=== PATIENT | female | born 1950 | race Caucasian/White ===

== ENCOUNTER → 2016-08-09 | Outpatient (CLI) | payer OTHER ==
[~2016-08-09] MED LIST: ASPI81TA21 PO; ASPITAB71 PO; ATOR-24 PO; CETI10TA10 PO; CLC100 PO; HYDR500C3 PO; LOSA25TA18 PO; MRLP17X PO; NITR0.4S UT; OMEP20CA9 PO; ONDA4TAB46 PO; TPRSR25 PO; TRIA0.1C55 TOP; WARF-246 PO
--- NOTE | 2016-08-09 15:06 | DIAGNOSTIC IMAGING REPORT ---
ULTRASOUND LEFT LOWER EXTREMITY VENOUS CLINICAL HISTORY: Left leg pain. COMPARISON STUDY: Bilateral lower extremity venous ultrasound dated 07/14/2013. TECHNIQUE: Real-time, grayscale, and color Doppler sonography of the deep veins of the left lower extremity was performed from the inguinal crease to the calf. Compression and augmentation were utilized. FINDINGS: There is no sonographic evidence of deep venous thrombosis identified in the left lower extremity. The common femoral, superficial femoral, and popliteal veins are patent and normally compressible. The greater saphenous vein and the profunda femoris vein at the junction with the common femoral vein are clear. The visualized calf veins are patent. IMPRESSION: There is no sonographic evidence of deep venous thrombosis identified in the left lower extremity. Electronically signed by: Sumit Ochoa M.D. 08/09/2016 3:05 PM Dictated Date/Time: 08/09/2016 3:04 PM
== END | disposition home or self-care (01) ==
LOC: C.ULTR 14:20
PROVIDERS: ATTEND Nurse Practitioner
DX: M79.662 Pain in left lower leg (principal); M79.89 Other specified soft tissue disorders

== ENCOUNTER 2018-10-01 09:07 | Inpatient (IN) ==
--- NOTE | 2018-08-13 08:57 | PAT Medication Instructions ---
Medication Instructions Date of Service August 13, 2018 Home Medications aspirin [Aspir-81] 81 mg PO DAILY atorvastatin 40 mg PO QAM calcium carbonate-simethicone [Emily-[place] Heartburn+Gas] 1 tab PO NEEDED cyanocobalamin (vitamin B-12) 1,000 mcg PO DAILY fluticasone propionate 2 spray INTRANASAL BID folic acid 1 mg PO DAILY glycerin (adult) [Suppository] 1 supp [place] DAILY NEEDED hydroxyurea 2 tab PO WK hydroxyurea 500 mg PO 6XWK ipratropium bromide 2 spray INTRANASAL BID losartan 25 mg PO DAILY nasal dilators [Breathe Right] nitroglycerin 1 tab SUBLINGUAL NEEDED omega 3-xrh-jrt-fish oil [Fish Oil] 1 cap PO DAILY omeprazole 20 mg PO BID ondansetron HCl 4 mg PO NEEDED polyethylene glycol 3350 [Miralax] 17 g PO DAILY NEEDED ranitidine HCl 300 mg PO QDD triamcinolone acetonide 1 applic TOPICAL NEEDED warfarin [Jantoven] 2.5 mg PO 2XWK warfarin [Jantoven] 5 mg PO 5XWK Continue as directed nitroglycerin 1 tab SUBLINGUAL NEEDED ASK your prescriber and surgeon warfarin [Jantoven] 2.5 mg PO 2XWK warfarin [Jantoven] 5 mg PO 5XWK aspirin [Aspir-81] 81 mg PO DAILY STOP taking 2 weeks before surgery omega 2-diw-omr-fish oil [Fish Oil] 1 cap PO DAILY STOP taking 24 hours before surgery triamcinolone acetonide 1 applic TOPICAL NEEDED DO NOT take the morning of surgery atorvastatin 40 mg PO QAM calcium carbonate-simethicone [[place] Heartburn+Gas] 1 tab PO NEEDED cyanocobalamin (vitamin B-12) 1,000 mcg PO DAILY fluticasone propionate 2 spray INTRANASAL BID folic acid 1 mg PO DAILY glycerin (adult) [Suppository] 1 supp [place] DAILY NEEDED hydroxyurea 2 tab PO WK hydroxyurea 500 mg PO 6XWK ipratropium bromide 2 spray INTRANASAL BID losartan 25 mg PO DAILY ondansetron HCl 4 mg PO NEEDED polyethylene glycol 3350 [Miralax] 17 g PO DAILY NEEDED Take morning of surgery With a small sip of water, OTHERWISE NOTHING TO EAT OR DRINK AFTER MIDNIGHT: omeprazole 20 mg PO BID Take evening before surgery fluticasone propionate 2 spray INTRANASAL BID ipratropium bromide 2 spray INTRANASAL BID nasal dilators [Breathe Right] omeprazole 20 mg PO BID ondansetron HCl 4 mg PO NEEDED polyethylene glycol 3350 [Miralax] 17 g PO DAILY NEEDED ranitidine HCl 300 mg PO QDD Other Notes If you have any questions please call us at [phone] or [phone] or [phone] or [phone]
--- NOTE | 2018-08-14 12:59 | Anesthesiology Consultation ---
Date of Service August 14, 2018 Assessment & Plan Chart Review Chart Review: Pending: Refer to Additional Notes / Consult section and Patient NOT seen in Pre Admission Testing Pt came to the ED on 08/13/18 with c/o SOB, dyspnea and atypical CP. Pt needs to be evaluated by PCP to ensure that she is optimized prior to her planned surgery Consults Requested medical History Surgery Operation Date: 08/29/18 10:35 Proposed Procedures p L2-S1 Decompression and Fusion, Possible Interbody - Kory Eller DO Height/Weight Height: 1.68 m Weight: 95.708 kg Allergies Allergy/AdvReac Type Severity Reaction Status Date / Time Penicillins Allergy Unknown PT NOT Verified 08/13/18 11:06 SURE, TOLD SINCE CHILDHOOD HAD REACTION TO PCN scallops Allergy Unknown throat Verified 08/13/18 11:06 swelling Sulfa (Sulfonamide Allergy Unknown PT NOT Verified 08/13/18 11:06 Antibiotics) SURE, ? BREATHING ISSUE tramadol AdvReac Severe SEVERE Verified 08/13/18 11:06 NAUSEA Medications Home Medications Medication Instructions Recorded Confirmed Last Taken aspirin [Aspir-81] 81 mg PO DAILY 08/08/18 08/13/18 08/07/18 atorvastatin 40 mg PO QAM 08/08/18 08/13/18 08/13/18 calcium carbonate-simethicone 1 tab PO UD PRN 08/08/18 08/13/18 Unknown [Emily-[place] Heartburn+Gas] cyanocobalamin (vitamin B-12) 1,000 mcg PO DAILY 08/08/18 08/13/18 Unknown [Vitamin B-12] fluticasone propionate 2 spray INTRANASAL BID 08/08/18 08/13/18 Unknown folic acid 1 mg PO DAILY 08/08/18 08/13/18 Unknown glycerin (adult) [Suppository 1 supp [place] DAILY PRN 08/08/18 08/13/18 Unknown Adult] hydroxyurea 2 tab PO WK 08/08/18 08/13/18 Unknown hydroxyurea 500 mg PO 6XWK 08/08/18 08/13/18 Unknown ipratropium bromide 2 spray INTRANASAL BID 08/08/18 08/13/18 Unknown losartan 25 mg PO DAILY 08/08/18 08/13/18 Unknown nasal dilators [Breathe Right] 08/08/18 08/13/18 Unknown nitroglycerin 1 tab SUBLINGUAL UD PRN 08/08/18 08/13/18 Unknown omega 7-lbk-lyt-fish oil [Fish Oil] 1 cap PO DAILY 08/08/18 08/13/18 Unknown omeprazole 20 mg PO BID 08/08/18 08/13/18 08/08/18 ondansetron HCl 4 mg PO UD PRN 08/08/18 08/13/18 Unknown polyethylene glycol 3350 [Miralax] 17 g PO DAILY PRN 08/08/18 08/13/18 Unknown ranitidine HCl 300 mg PO QDD 08/08/18 08/13/18 08/07/18 triamcinolone acetonide 1 applic TOPICAL UD PRN 08/08/18 08/13/18 Unknown warfarin [Jantoven] 2.5 mg PO 2XWK 08/08/18 08/13/18 Unknown warfarin [Jantoven] 5 mg PO 5XWK 08/08/18 08/13/18 08/07/18 Past Medical History Medical History Acid reflux Back problem Blood disorder "ESSENTIAL" (PT NOT SURE REMAINDER OF NAME)- PT REPORTS PLATELETS ARE TOO HIGH Chronic constipation Hiatal hernia History of fainting YRS AGO History of fall History of pulmonary embolism 2013 Hyperlipidemia Hypertension Learning disability 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 Osteoarthritis Poor short term memory Rheumatoid arthritis Sinus congestion ENT FOR/TROUBLE BREATHING THROUGH NOSE Sleep apnea 02 HS Stress incontinence Thyroid nodule Past Family History Family History Other Family history of stroke Past Surgical History Surgical History History of cardiac cath YRS AGO, [place], PT CAN'T REMEMBER REASON...DENIES STENTS History of colonoscopy History of endoscopy History of shoulder surgery R & L - SEPERATE PROCEDURES FOR History of tubal ligation History of PONV No Social History Smoking Status: Never smoker Do You Dip or Chew Tobacco: No Hx Alcohol Use: No Hx Substance Use: No substance use type: does not use Exercise / Class Metabolic Activity III < 4 Walking/Shop/Light housework Testing Electrocardiogram Date: 08/13/18 Findings: + NSR @ (64 bpm) Chest X-Ray Date: 08/13/18 Findings: + NAD FINDINGS: Cardiac silhouette mildly enlarged. Lungs and pleural spaces clear. Osseous structures normal. Upper abdomen normal. IMPRESSION: 1. Mild cardiomegaly. No other convincing evidence of acute cardiopulmonary disease. Laboratory Results Laboratory Tests 08/13/18 08/13/18 08/13/18 10:34 10:34 10:34 WBC 6.48 Hgb 13.2 Hct 39.6 Plt Count 368 PT 19.5 H INR 2.0 H Sodium 140 Potassium 3.8 Chloride 107 Carbon Dioxide 26 BUN 11 Creatinine 0.82 Glucose 110 H TSH 1.120
[~2018-10-01 09:07] MED LIST changes: +ACETAMINOPHEN 500 MG TAB PO SCH; -ASPI81TA21 PO; -ASPITAB71 PO; -ATOR-24 PO; -CETI10TA10 PO; -CLC100 PO; +CLINDAMYCIN 600 MG/54 ML BAG IV SCH; +GABAPENTIN 300 MG PO SCH; -HYDR500C3 PO; +HYDROmorphone INJ 2 MG/ML SYR/VIAL ONE; -LOSA25TA18 PO; +LR 15ML/HR IV SCH; +MIDAZOLAM HCL 1 MG/ML 2ML VIAL ONE; -MRLP17X PO; -NITR0.4S UT; -OMEP20CA9 PO; -ONDA4TAB46 PO; +PROPOFOL IV EMULSION 10 MG/ML 100 ML VIAL IV ONE; -TPRSR25 PO; -TRIA0.1C55 TOP; -WARF-246 PO; +fentaNYL citrate 100 MCG/2 ML VIAL ONE
--- OUTSIDE RECORDS SUMMARY | 2018-10-01 09:16 | External Medical Summary | Continuity of Care Document ---
:1950 Author Name Allrozina M.D. 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 ___ (724.02) Shoulder joint pain (719.41) (M25.519) Multiple thyroid nodules (241.1) (E04.2) Obstructive sleep apnea (327.23) (G47.33) Long-term (current) use of anticoagulants (V58.61) (Z79.01) Essential tremor (333.1) (G25.0) Memory disturbance (780.93) (R41.3) Hyperlipidemia (272.4) (E78.5) Hypertension (401.9) (I10) Esophageal reflux (530.81) (K21.9) Osteoarthritis (715.90) (M19.90) Peripheral neuropathy (356.9) (G62.9) Hiatal hernia (553.3) (K44.9) Varicose veins (454.9) (I83.90) Postmenopausal status (V49.81) (Z78.0) Allergies and Adverse Reactions Lisinopril TABS (Allergy) Penicillins (Allergy) Sulfa Drugs (Allergy) Medications Aspirin 81 MG TABS , M.D. Refills: 0 Warfarin Sodium 1 MG Oral Tablet; TAKE DIRECTED. , M.D. Refills: 0 Flonase 50 MCG/ACT SUSP; USE 2 SPRAYS IN EACH NOSTRIL ONCE D Uday URBANO. Quantity: 1 Refills: 1 Omeprazole 20 MG Oral Capsule Delayed Release; 1 bid , M.D. Refills: 0 Emily-[place] Extra Strength 500 MG Oral Tablet Effervescent; chew 1 at bedtime for acid reflux , M.D. Refills: 0 Nitrostat 0.4 MG Sublingual Tablet Subli ngual; PLACE 1 TABLET UNDER THE TONGUE EVERY 5 MINUTES FOR UP TO 3 DOSES NEEDED FOR CHEST PAIN.CALL 911 IF PAIN PERSISTS. , M.D. Refills: 0 Toprol XL 25 MG Oral Tablet Extended Release 24 Hour; TAKE 1/2 TABLET DAILY. , M.D. Refills: 0 Atorvastatin Calcium 40 MG Oral Tablet; 1 daily , M.D. Refills: 0 MiraLax Oral Powder; 1 heaping TB in 8 oz fluid prn constipa tion. , M.D. Refills: 0 Docusate Sodium 100 MG Oral Capsule; 1 tablet bid , M.D. Refills: 0 Hydroxyurea; TAKE 1 CAPSULE DAILY. , M.D. Refills: 0 Losartan Potassium 25 MG Oral Tablet; TAKE 1 TABLET DAILY. , M.D. Refills: 0 Zofran 4 MG Oral Tablet; 1 tablet every 8 hours prn nausea , M.D. Refills: 0 Cetirizine HCl - 10 MG Oral Tablet; TAKE 1 TABLET DAILY N EEDED. , M.D. Refills: 0 Triamcinolone Acetonide 0.1 % External Cream; apply BID to a ffected area , M.D. Refills: 0 Procedures History of Shoulder Surgery Status: Comp leted History of Neuroplasty Decompression Median Nerve At Carpal Status: Completed Tunnel History of Dilation And Curettage Status : Completed History of Laparoscopy With Fulguration Of Oviducts Status: Completed History of Complete Colonoscopy Status: Completed History of Diagnostic Esophagogastroduodenoscopy Status: Completed Immunizations Immunizations not documented Family History Father Family history of hypertension (V17.49) (Z82.49) Status: Act serge Family history of Pernicious anemia (281.0) (D51.0) Status: Active Mother Family history of acute myocardial infarction (V17.3) (Z82.4 9) Status: Active Social History - Smoking Status Never smoker Plan of Treatment Planned Observations Planned Goals not documented Results No Known Results Results not documented
[2018-10-01] MEDS ORDERED: ATROPINE SULFATE 0.1 MG/ML 10ML SYR IV PRN (09:56)
[2018-10-01] MEDS ORDERED: ePHEDrine sulfate 50 MG/ML AMP IV PRN (09:56)
[2018-10-01] MEDS ORDERED: fentaNYL citrate 100 MCG/2 ML VIAL IV PRN (09:56)
[2018-10-01] MEDS ORDERED: PHENYLEPHRINE 100MCG/ML 5ML SYR IV PRN (09:56)
[2018-10-01] MEDS ORDERED: PROMETHAZINE HCL 12.5 MG in SODIUM CHLORIDE 0.9% 50 ML IV PRN ×2 (09:56→15:51)
[2018-10-01] MEDS ORDERED: ONDANSETRON INJ 2 MG/ML 2 ML VIAL IV PRN (09:56)
[2018-10-01] MEDS ORDERED: HYDROmorphone INJ 1 MG/ML SYRINGE IV PRN (09:56)
[2018-10-01 10:14] LABS: INR 1.1 (0.9-1.1); Prothrombin Time 11.4 Seconds (9.0-12.0)
--- NOTE | 2018-10-01 10:19 | History & Physical Bridge Note ---
Date of Service October 01, 2018 History & Physical Bridge Note I have examined the patient, reviewed the History & Physical and in the interval since the performance of the History & Physical I have noted the following changes of clinical significance: no changes noted
--- NOTE | 2018-10-01 10:20 | History & Physical Report ---
Date of Service October 01, 2018 Assessment & Plan (1) Spinal stenosis, lumbar region with neurogenic claudication: Decompression and fusion L2-S1 possible interbody Present on Admission?: Yes History of Present Illness Chief Complaint: Back and leg pain Primary Care Provider: Heather Higgins MD Presents with chronic persistent back and leg pain. After failing extensive course of nonoperative care she is here for surgical intervention. Allergies Allergy/AdvReac Type Severity Reaction Status Date / Time Penicillins Allergy Unknown PT NOT Verified 10/01/18 09:39 SURE, TOLD SINCE CHILDHOOD HAD REACTION TO PCN scallops Allergy Unknown throat Verified 10/01/18 09:39 swelling Sulfa (Sulfonamide Allergy Unknown PT NOT Verified 10/01/18 09:39 Antibiotics) SURE, ? BREATHING ISSUE tramadol AdvReac Severe SEVERE Verified 10/01/18 09:39 NAUSEA Home Medications Home Medications Medication Instructions Recorded Confirmed Type aspirin [Aspir-81] 81 mg PO DAILY 08/08/18 10/01/18 History atorvastatin 40 mg PO QAM 08/08/18 10/01/18 History calcium carbonate-simethicone 1 tab PO UD PRN 08/08/18 10/01/18 History [Emily-[place] Heartburn+Gas] cyanocobalamin (vitamin B-12) 1,000 mcg PO DAILY 08/08/18 10/01/18 History [Vitamin B-12] fluticasone propionate 2 spray INTRANASAL BID 08/08/18 10/01/18 History folic acid 1 mg PO DAILY 08/08/18 10/01/18 History glycerin (adult) [Suppository 1 supp [place] DAILY PRN 08/08/18 10/01/18 History Adult] hydroxyurea 2 tab PO WK 08/08/18 10/01/18 History hydroxyurea 500 mg PO 6XWK 08/08/18 10/01/18 History ipratropium bromide 2 spray INTRANASAL BID 08/08/18 08/13/18 History losartan 25 mg PO DAILY 08/08/18 10/01/18 History nasal dilators [Breathe Right] 08/08/18 08/13/18 History nitroglycerin 1 tab SUBLINGUAL UD PRN 08/08/18 10/01/18 History omega 4-jlo-gyl-fish oil [Fish Oil] 1 cap PO DAILY 08/08/18 10/01/18 History omeprazole 20 mg PO BID 08/08/18 10/01/18 History ondansetron HCl 4 mg PO UD PRN 08/08/18 10/01/18 History polyethylene glycol 3350 [Miralax] 17 g PO DAILY PRN 08/08/18 10/01/18 History ranitidine HCl 300 mg PO QDD 08/08/18 10/01/18 History triamcinolone acetonide 1 applic TOPICAL UD PRN 08/08/18 10/01/18 History warfarin [Jantoven] 2.5 mg PO 2XWK 08/08/18 10/01/18 History warfarin [Jantoven] 5 mg PO 5XWK 08/08/18 10/01/18 History Past Med/Surg History Family History Other Family history of stroke Social History Preferred Language: Uzbek Communication Ability: Effective Communication Ability Comment: LEARNING DISABILITY/CAN'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 Feather Washer Required: No Beliefs That Will Affect Care: Spiritism Spiritism Beliefs: SHINTO Current Living Situation: Significant Other Other Information That Helps Us Care for You: No Feels Safe at Home: Yes Smoking Status: Never smoker Do You Dip or Chew Tobacco: No Hx Alcohol Use: No Hx Substance Use: No Physical Exam Vital Signs (Past 24 Hours): Last Vital Signs Temp 36.6 C 10/01/18 09:38 Pulse 66 10/01/18 09:38 Resp 18 10/01/18 09:38 BP 162/90 H 10/01/18 09:38 Pulse Ox 99 10/01/18 09:38 Physical Exam: Patient is alert and oriented neurologically intact.
[2018-10-01] MEDS ORDERED: ALBUMIN HUMAN 5% 12.5 GM/250 ML VIAL IV ONE ×2 (10:28→12:49)
[2018-10-01] MEDS ORDERED: HYDROmorphone INJ 2 MG/ML SYR/VIAL ONE ×2 (10:28→13:34)
[2018-10-01] MEDS ORDERED: BUPIVACAINE/EPINEPHRINE 0.5% MPF 1:200,000 30 ML VIAL ONE ×2 (10:38→11:20)
[2018-10-01] MEDS ORDERED: BACITRACIN INJ 50,000 UNIT VIAL ONE (10:39)
[2018-10-01] MEDS ORDERED: fentaNYL citrate 100 MCG/2 ML VIAL ONE ×3 (11:21→12:57)
[2018-10-01] MEDS ORDERED: PHENYLEPHRINE 100MCG/ML 5ML SYR ONE ×2 (11:51→13:43)
[2018-10-01] MEDS ORDERED: ePHEDrine sulfate 50 MG/ML SYR ONE ×2 (11:53→13:43)
[2018-10-01 13:28] LABS: Hematocrit (blood only) 26.4 % (37-47); Hemoglobin 9.2 g/dL (12.0-16.0)
[2018-10-01] MEDS ORDERED: FLOSEAL HEMOSTATIC MATRIX 10ML TOP ONE (13:34)
[2018-10-01] MEDS ORDERED: CALCIUM CHLORIDE 10% 10 ML SYR IV ONE ×2 (13:35→13:43)
--- NOTE | 2018-10-01 13:39 | Operative Report ---
Post Operative Report Pre & Post Diagnosis Operation Date: 08/29/18 10:05 <No data on this case meets the specified criteria> Operation Date: 10/01/18 10:55 Pre-Op Diagnosis: Lumbar spinal stenosis with neurogenic claudication Obesity Post-Op Diagnosis: Same Procedure Operation Date: 08/29/18 10:05 <No data on this case meets the specified criteria> Operation Date: 10/01/18 10:55 Actual Procedures #1 lumbar decompression with bilateral medial facetectomies and foraminotomies L2-3 L3-4 L4-5 L5-S1. #2 posterior spinal fusion L2-3 L3-4 L4-5 L5-S1. #3 placement of posterior segmental instrumentation using globus rods and screws L2-3 L3-4 L4-5 L5-S1. #4 placement of local autograft in the posterior lateral gutters. #6 5 placement infuse collagen sponge, mass graft in the posterior lateral gutters. Surgeon Kory Eller, DO Supervisor Housecleaner Maureen Cherry Estimated Blood Loss 1,300 Findings See Below Patient is 5 foot 6 inches tall and weighs 91 kg with a BMI of 32. This combined with a blood loss in excess of 1300 cc created significant technical difficulty. I did have to use her largest retractors and longus Kerrisons to perform the procedure. This added at least 30 to 40% increase in operative time. Specimens None Indications This is a 68-year-old female who presents with chronic persistent back and bilateral leg pain. After failing extensive course of nonoperative care like to undergo the above-mentioned procedure. Description of Procedure Patient was met with identified and informed consent obtained. Patient was then taken to the operative suite and after undergoing intubation placed in the prone position the Bruno table on top of the Moncho frame. All bony prominences well-padded inspected to ensure no external pressure placed upon. This point the lumbar spine was prepped and draped in a normal sterile fashion. Sharp dissection with the assistance of Bovie cautery was performed down to and exposing the lamina and transverse processes of L2 L3-L4-L5 and sacral ala bilaterally. From a caudal cephalad fashion complete laminectomy of L5 L4 L3 and L2 was performed including bilateral medial facetectomies and foraminotomies addressing severe stenosis. A small durotomy was noted along the lateral recess to 3 4 on the left. Was unable to close this directly and placed a small piece of DuraGen overlying this region. This created a good seal and no appreciable leakage. Pedicle screws were then placed in L2 L3-L4-L5 and S1 levels bilaterally with assistance of fluoroscopy and appropriate size gregg placed. A cross-link was locked in position. The transverse processes of L2 L3-L4-L5 and sacral ala were burred to subcortical being bone. Infuse collagen sponge and mass graft was then placed in the posterior lateral gutters. 15 round VIGNESH drain inserted. The incision was then closed with 1 Vicryl in the fascia 2-0 Vicryl subtenons seen for Monocryl for final skin closure. Steri-Strip sterile dressings placed. Patient will continue to PACU stable condition. Please note Maureen Cherry present throughout the entire procedure involved in patient positioning complex portions of the surgery and final skin closure. Lastly spinal cord monitoring was utilized and no changes were noted. I attest to the content of the Intraoperative Record and any orders documented therein. Any exceptions are noted below.
[2018-10-01] MEDS ORDERED: LIDOCAINE HCL 2% 2 ML VIAL/AMP(20MG/ML) INFIL ONE (13:43)
[2018-10-01] MEDS ORDERED: KETOROLAC 30 MG/ML VIAL ONE (13:43)
[2018-10-01] MEDS ORDERED: GLYCOPYRROLATE 0.2 MG/ML VIAL ONE (13:43)
[2018-10-01] MEDS ORDERED: DEXAMETHASONE SOD INJ 4 MG/ML VIAL ONE (13:43)
[2018-10-01] MEDS ORDERED: PROPOFOL IV EMULSION 10 MG/ML 20 ML VIAL IV ONE (13:43)
[2018-10-01] MEDS ORDERED: ROCURONIUM BROMIDE 10 MG/ML 5 ML VIAL ONE (13:43)
[2018-10-01] MEDS ORDERED: ONDANSETRON INJ 2 MG/ML 2 ML VIAL ONE ×2 (13:43→15:30)
[2018-10-01] MEDS ORDERED: NEOSTIGMINE METHYLSULFATE 1 MG/ML 10ML VIAL ONE (13:43)
--- NOTE | 2018-10-01 13:58 | Fluoroscopy Report ---
FL lumbar spine 2-3V HISTORY: 68 years-old Female L2-S1 DECOMPRESSION AND FUSION POSSIBLE INTERBODY COMPARISON: CTA of the abdomen and pelvis 08/13/2018 TECHNIQUE: 2 spot fluoroscopic images of the lumbar spine were obtained utilizing 40 seconds fluorosc opy time FINDINGS: Posterior interbody gregg and screw fusion hardware is noted extending from the L2-S1 levels. Multileve l spondylitic spurring with intervertebral disc space narrowing. Alignment appears satisfactory. IMPRESSION: Fluoroscopic assistance as above. Please see operative report for further details. The above report was generated using voice recognition software. It may contain grammatical, syntax o r spelling errors. Electronically signed by: Howie Solorio M.D. 10/01/2018 1:56 PM
[2018-10-01] MEDS ORDERED: SOD PHOSPHATE/SOD BIPHOSPHATE ENEMA 132 ML BTL PR PRN (15:51)
[2018-10-01] MEDS ORDERED: FAMOTIDINE 20 MG TAB PO PRN (15:51)
[2018-10-01] MEDS ORDERED: DO NOT ADMINISTER PNEUMOCOCCAL VACCINE PRN (15:51)
[2018-10-01] MEDS ORDERED: GLYCERIN PR PRN (15:51)
[2018-10-01] MEDS ORDERED: DO NOT ADMINISTER FLU VACCINE PRN (15:51)
[2018-10-01] MEDS ORDERED: TRIAMCINOLONE ACET 0.1% CR 15 GM TUBE TOP PRN (15:51)
[2018-10-01] MEDS ORDERED: ALUMINUM/MAGNESIUM SUSP 30 ML UDC PO PRN (15:51)
[2018-10-01] MEDS ORDERED: POLYETHYLENE (MIRALAX) 17 GM PACK PO PRN (15:51)
[2018-10-01] MEDS ORDERED: LORazepam 0.5 MG/1 ML VIAL IV PRN (15:51)
[2018-10-01] MEDS ORDERED: BISACODYL 10 MG SUPP PR PRN (15:51)
[2018-10-01] MEDS ORDERED: [UNRECOGNIZED DRUG - OTHER] PO PRN (15:51)
[2018-10-01] MEDS ORDERED: MAGNESIUM HYDROXIDE SUSP 30 ML UDC PO PRN (15:51)
[2018-10-01] MEDS ORDERED: METOCLOPRAMIDE HCL INJ 5 MG/ML 2 ML VIAL IV PRN (15:51)
[2018-10-01] MEDS ORDERED: NITROGLYCERIN SL 0.4 MG/TAB TAB SL PRN (15:51)
[2018-10-01] MEDS ORDERED: WARFARIN SOD 5 MG TAB PO SCH (15:51)
[2018-10-01] MEDS ORDERED: ONDANSETRON 4 MG TAB PO PRN ×2 (15:51)
[2018-10-01] MEDS ORDERED: CALCIUM CARBONATE SIMETHICONE PO PRN (15:51)
--- NOTE | 2018-10-01 16:20 | Anesthesiology Progress Note ---
Date of Service October 01, 2018 Anesthesia Post Procedure Vital Signs Vital Signs: Temp Pulse Pulse Resp BP Pulse Ox 10/01/18 16:10 36.3 C L 47 L 16 154/90 H 100 10/01/18 15:40 36.3 C L 51 L 15 158/87 H 97 10/01/18 15:20 49 L 16 148/70 H 100 10/01/18 15:05 49 L 15 140/76 100 10/01/18 14:55 48 L 14 178/73 H 98 10/01/18 14:45 36.2 C L 53 L 17 151/76 H 99 10/01/18 14:35 55 L 15 164/85 H 99 10/01/18 14:25 60 17 156/86 H 100 10/01/18 14:15 60 14 166/79 H 99 10/01/18 14:07 36.4 C L 57 L 16 171/87 H 100 10/01/18 09:38 36.6 C 66 18 162/90 H 99 Pain Intensity Lower Back: Pain Intensity: 6 Transfer of Care Handoff Completed per policy Notes Mental Status: alert / awake / arousable Patient Amnestic to Procedure: Yes Nausea / Vomiting: adequately controlled Pain: adequately controlled Airway Patency, RR, SpO2: stable & adequate BP & HR: stable & adequate Hydration State: stable & adequate Anesthetic Complications: no major complications apparent Notes: Doing well, no complaints. VSS
[2018-10-01] MEDS ORDERED: HYDROXYUREA 500 MG CAP PO SCH (17:00)
--- NOTE | 2018-10-01 17:27 | Consultation ---
Date of Consultation October 01, 2018 Assessment & Plan (1) H/O lumbosacral spine surgery: This is a 68-year-old female with a PMH of HTN, HLD, history of recurrent PE on Coumadin, chronic chest pain, essential thrombocytopenia and lumbosacral stenosis who is POD#0 s/p lumbar decompression and fusion L2-S1 by Dr. Eller. -POD#0 s/p lumbar decompression and fusion L2-S1 by Dr. Eller -Per ortho for pain control, wound care and activities -Small dural tear noted in operative note. Bedrest in flat position until surgeon evaluates tomorrow -Receiving fluids at 150cc/hr. Will cap after 2L to reassess volume status -Continue incentive spirometry, PT/OT when appropriate (2) Acute blood loss anemia: EBL of 1300 during surgery -Pre-op hgb from August 2018 with hgb of 13. Post-op hgb of 9.2 -Received 1u prbcs intraoperatively. 1 unit held -Serial H & H overnight (3) Nausea: Postoperative -Continue Zofran PRN, added Phenergan NH PRN (4) Hypertension: Slightly elevated post-operatively in setting of pain -Continue losartan (5) Hyperlipidemia: Continue statin (6) History of pulmonary embolism: History of recurrent PE on coumadin, last PE in 2013 -Was bridged with Lovenox preoperatively. Last dose of Coumadin was on 09/25 and bridged SQ Lovenox from 09/28 - 09/30 at 8 AM -Holding Lovenox and coumadin in post-operative setting with dural tear, per discussion with Dr. Eller (7) Essential thrombocytosis: Continue hydroxyurea (8) Sleep apnea: Continue home 2L nasal cannula oxygen (9) Acid reflux: Continue PPI DVT Ppx: SCDs PCP: Ronaldo Dispo: Per primary service Patient seen in collaboration with Dr. Johnson. Please see addendum. History of Present Illness Reason for Consultation: This is a 68-year-old female with a PMH of HTN, HLD, history of recurrent PE on Coumadin, chronic chest pain, essential thrombocytopenia and lumbosacral stenosis who is POD#0 s/p lumbar decompression and fusion L2-S1 by Dr. Eller. Patient is feeling nauseated postoperatively but denies any vomiting. Is endorsing surgical site pain that is 7/10 and worse with movement. No numbness or paresthesias of lower extremities. Patient with history of recurrent PEs (last known PE in 2013) and emergency medical services coordinator recommended bridging therapy with Lovenox perioperatively. Last dose of Coumadin was on 09/25 and bridged SQ Lovenox from 09/28 - 09/30 at 8 AM. Is on 2 L nasal cannula oxygen continuously at home for sleep apnea. Denies any fever, chills, lightheadedness, headache, chest pain, palpitations, shortness of breath, abdominal pain, dysuria, diarrhea or constipation. Attending Physician: Kory Eller DO Allergies Allergy/AdvReac Type Severity Reaction Status Date / Time Penicillins Allergy Unknown PT NOT Verified 10/01/18 09:39 SURE, TOLD SINCE CHILDHOOD HAD REACTION TO PCN scallops Allergy Unknown throat Verified 10/01/18 09:39 swelling Sulfa (Sulfonamide Allergy Unknown PT NOT Verified 10/01/18 09:39 Antibiotics) SURE, ? BREATHING ISSUE tramadol AdvReac Severe SEVERE Verified 10/01/18 09:39 NAUSEA Home Medications Home Medications Medication Instructions Recorded Confirmed Type aspirin [Aspir-81] 81 mg PO DAILY 08/08/18 10/01/18 History atorvastatin 40 mg PO QAM 08/08/18 10/01/18 History calcium carbonate-simethicone 1 tab PO UD PRN 08/08/18 10/01/18 History [Emily-Baudette Heartburn+Gas] cyanocobalamin (vitamin B-12) 1,000 mcg PO DAILY 08/08/18 10/01/18 History [Vitamin B-12] fluticasone propionate 2 spray INTRANASAL BID 08/08/18 10/01/18 History folic acid 1 mg PO DAILY 08/08/18 10/01/18 History glycerin (adult) [Suppository 1 supp NH DAILY PRN 08/08/18 10/01/18 History Adult] hydroxyurea 2 tab PO WE@0900 08/08/18 10/01/18 History hydroxyurea 500 mg PO SUMOTUTHFRSA@0900 08/08/18 10/01/18 History ipratropium bromide 2 spray INTRANASAL BID 08/08/18 08/13/18 History losartan 25 mg PO DAILY 08/08/18 10/01/18 History nasal dilators [Breathe Right] 08/08/18 08/13/18 History nitroglycerin 1 tab SUBLINGUAL UD PRN 08/08/18 10/01/18 History omega 4-whe-zly-fish oil [Fish Oil] 1 cap PO DAILY 08/08/18 10/01/18 History omeprazole 20 mg PO BID 08/08/18 10/01/18 History ondansetron HCl 4 mg PO UD PRN 08/08/18 10/01/18 History polyethylene glycol 3350 [Miralax] 17 g PO DAILY PRN 08/08/18 10/01/18 History ranitidine HCl 300 mg PO QDD 08/08/18 10/01/18 History triamcinolone acetonide 1 applic TOPICAL UD PRN 08/08/18 10/01/18 History warfarin [Jantoven] 2.5 mg PO TUTHSA@1600 08/08/18 10/01/18 History warfarin [Jantoven] 5 mg PO SUMOWEFR@1600 08/08/18 10/01/18 History enoxaparin 100 mg SUBCUT Q12H 10/01/18 10/01/18 History Patient History Medical History Hypertension (Chronic) Hyperlipidemia (Chronic) History of pulmonary embolism (Chronic) Last in 2013, on coumadin Sleep apnea (Chronic) 02 HS Acid reflux (Chronic) Osteoarthritis (Chronic) Essential thrombocytosis (Chronic) Hiatal hernia (Chronic) Learning disability (Chronic) 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 Poor short term memory (Chronic) Stress incontinence (Chronic) Surgical History History of cardiac cath (Chronic) YRS AGO, [place], PT CAN'T REMEMBER REASON...DENIES STENTS History of shoulder surgery (Chronic) R & L - SEPERATE PROCEDURES FOR History of tubal ligation (Chronic) Family History Other Family history of stroke Heart disease Social History Preferred Language: Kyr[place]z Communication Ability: Effective Communication Ability Comment: LEARNING DISABILITY/CAN'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 Servicing Manager Required: No Beliefs That Will Affect Care: Scientology Scientology Beliefs: ORIENTAL ORTHODOX Current Living Situation: Significant Other Other Information That Helps Us Care for You: No Feels Safe at Home: Yes Smoking Status: Never smoker Do You Dip or Chew Tobacco: No Hx Alcohol Use: No Hx Substance Use: No Review of Systems Review of Systems: At least ten systems reviewed and negative except as noted in the HPI. Physical Exam Physical Exam: General Appearance: WD/WN, in some distress due to nausea, sleeping intermittently but cooperative, saturating 99% on 2L NC Head: normocephalic, atraumatic Eyes: normal inspection, PERRL, EOMI ENT: hearing grossly normal, pharynx normal (moist mucous membranes) Neck: supple, no JVD, no adenopathy Respiratory/Chest: lungs clear to auscultation. No wheezes, rales or rhonci. No respiratory distress or accessory muscle use Cardiovascular: regular rate, rhythm, no murmur, normal peripheral pulses Abdomen/GI: normal bowel sounds, soft, non-tender to palpation Extremities/Musculoskelatal: normal inspection, no calf tenderness, normal capillary refill, no pedal edema Back: Did not examine surgical dressing due to patient's nausea. VIGNESH drain visualized. Neurologic/Psych: alert, normal mood/affect, oriented x 3 Skin: pale, warm/dry Results & Data Vital Signs (Past 12 Hours) Vital Signs Temp Pulse Pulse Resp BP Pulse Ox 10/01/18 16:36 55 L 16 158/83 H 100 10/01/18 16:10 36.3 C L 47 L 16 154/90 H 100 10/01/18 15:40 36.3 C L 51 L 15 158/87 H 97 10/01/18 15:20 49 L 16 148/70 H 100 10/01/18 15:05 49 L 15 140/76 100 10/01/18 14:55 48 L 14 178/73 H 98 10/01/18 14:45 36.2 C L 53 L 17 151/76 H 99 10/01/18 14:35 55 L 15 164/85 H 99 10/01/18 14:25 60 17 156/86 H 100 10/01/18 14:15 60 14 166/79 H 99 10/01/18 14:07 36.4 C L 57 L 16 171/87 H 100 10/01/18 09:38 36.6 C 66 18 162/90 H 99 Laboratory Results Short CBC 10/01/18 Range/Units 13:09 Hgb 9.2 L (12.0-16.0) g/dL Hct 26.4 L (37-47) % Pertinent pre-op labs (08/13/18): Hgb 13 Cr 0.82 GFR 72.5
[2018-10-01] MEDS ORDERED: PROMETHAZINE HCL 25 MG SUPP PR STA (17:31)
[2018-10-01] MEDS: LACTATED RINGER'S 1,000 ML IV SCH (18:06)
[2018-10-01] MEDS: CLINDAMYCIN 600 MG in DEXTROSE 5% 50 ML IV SCH (19:41)
[2018-10-01 20:15] LABS: Hematocrit (blood only) 30.4 % (37-47); Hemoglobin 10.1 g/dL (12.0-16.0)
[2018-10-01] MEDS ORDERED: FAMOTIDINE 20 MG in SYRINGE 3 ML IV SCH (20:30)
[2018-10-01] MEDS ORDERED: FAMOTIDINE 20 MG in SYRINGE 3 ML IV PRN (20:45)
[2018-10-01] MEDS: PANTOprazole 40 MG TAB PO SCH (21:33)
[2018-10-01] MEDS: DOCUSATE SODIUM/SENNA 50/8.6MG TAB PO SCH (21:33)
[2018-10-01] MEDS: IPRATROPIUM BROMIDE NASAL SPRAY 0.06% 15ML SCH (21:34)
[2018-10-01] MEDS: ACETAMINOPHEN 500 MG TAB PO PRN (23:37)
[2018-10-02] MEDS: LACTATED RINGER'S 1,000 ML IV SCH ×3 (00:35→23:50)
[2018-10-02 02:14] LABS: Hematocrit (blood only) 26.9 % (37-47); Hemoglobin 9.1 g/dL (12.0-16.0); Mean Corpuscular Hgb Conc 33.8 g/dL (32-36); Mean Corpuscular Volume 103.1 fL (80-100); Mean Platelet Volume 9.3 fL (7.4-10.4); Platelet Count 219 K/uL (130-400); RDW Coefficient of Variation 14.7 % (11.5-14.5); RDW Standard Deviation 55.3 fL (36.4-46.3); Red Blood Count 2.61 M/uL (4.2-5.4); White Blood Count 7.82 K/uL (4.8-10.8)
[2018-10-02 02:35] LABS: Immature Granulocytes # (auto) 0.01 K/uL (0.00-0.02); Immature Granulocytes % (auto) 0.1 %; Lymphocytes # (auto) 0.51 K/uL (1.2-3.4); Lymphocytes % (auto) 6.5 %; Monocytes # (auto) 0.51 K/uL (0.11-0.59); Monocytes % (auto) 6.5 %; Neutrophils # (auto) 6.79 K/uL (1.4-6.5); Neutrophils % (auto) 86.9 %
[2018-10-02 02:39] LABS: BUN Creatinine Ratio 11.3 (10-20); Calcium 8.5 mg/dl (8.5-10.1); Creatinine Clr Calc Pharmacy 100.8 ml/min; Est GFR (African American) 106.5; Est GFR (Non-African American) 91.9; Potassium 3.9 mmol/L (3.5-5.1)
[2018-10-02] MEDS: CLINDAMYCIN 600 MG in DEXTROSE 5% 50 ML IV SCH (03:47)
[2018-10-02] MEDS: IPRATROPIUM BROMIDE NASAL SPRAY 0.06% 15ML SCH ×2 (03:48→21:34)
[2018-10-02] MEDS: POLYETHYLENE (MIRALAX) 17 GM PACK PO SCH ×3 (05:43→19:52)
[2018-10-02] MEDS: ONDANSETRON INJ 2 MG/ML 2 ML VIAL IV PRN (07:22)
[2018-10-02] MEDS: CYANOCOBALAMIN 500 MCG TABLET (VITAMIN B-12) PO SCH (08:44)
[2018-10-02] MEDS: ATORVASTATIN 40 MG TAB PO SCH (08:44)
[2018-10-02] MEDS: LOSARTAN POTASSIUM 25 MG TAB PO SCH (08:44)
[2018-10-02] MEDS: HYDROXYUREA 500 MG CAP PO SCH (08:44)
[2018-10-02] MEDS: ASPIRIN 81 MG ECTAB PO SCH (08:44)
[2018-10-02] MEDS: FOLIC ACID 1 MG TAB PO SCH (08:44)
[2018-10-02] MEDS: PANTOprazole 40 MG TAB PO SCH ×2 (08:44→21:34)
[2018-10-02] MEDS: HYDROmorphone INJ 0.5 MG/0.5 ML SYR IV PRN ×3 (09:13→23:58)
--- NOTE | 2018-10-02 10:52 | Hospitalist Progress Note ---
Date of Service October 02, 2018 Assessment & Plan (1) H/O lumbosacral spine surgery: This is a 68-year-old female with a PMH of HTN, HLD, history of recurrent PE on Coumadin, chronic chest pain, essential thrombocytopenia and lumbosacral stenosis who is POD#1 s/p lumbar decompression and fusion L2-S1 by Dr. Eller. -POD#1 s/p lumbar decompression and fusion L2-S1 by Dr. Eller -Per ortho for pain control, wound care and activities -Small dural tear noted in operative note. Bedrest in flat position until surgeon evaluates today -Receiving fluids at 150 ml/hr for 2 L. Decreased fluid rate to 80 ml/hr to decrease likelyhood of volume overload -Continue incentive spirometry, PT/OT when appropriate (2) Acute blood loss anemia: EBL of 1300 ml during surgery. VIGNESH output 705 ml -Pre-op hgb from August 2018 with hgb of 13. Post-op hgb of 9.2 that was 9.1 this morning -Received 1u prbcs intraoperatively -Continue monitoring with daily CBC -Monitor for orthostasis once patient is ambulating more (3) Nausea: Postoperative -Continue Zofran PRN, IV Phenergan PRN as well (4) Hypertension: Slightly elevated post-operatively in setting of pain -Continue losartan (5) Hyperlipidemia: Continue statin (6) History of pulmonary embolism: History of recurrent PE on coumadin, last PE in 2013 -Was bridged with Lovenox preoperatively. Last dose of Coumadin was on 09/25 and bridged SQ Lovenox from 09/28 - 09/30 at 8 AM -Holding Lovenox and coumadin in post-operative setting with dural tear, per Dr. Eller -- will discuss whether or not to resume coumadin this afternoon vs tomorrow (7) Essential thrombocytosis: Continue hydroxyurea (8) Sleep apnea: Continue home 2L nasal cannula oxygen (9) Acid reflux: IV Pepcid Q12H for now DVT Ppx: SCDs PCP: Ronaldo Dispo: Per primary service Patient seen in collaboration with Dr. Marin. Please see addendum. Supervising Physician Co-Signing Physician Notes delayed entry date of service as noted above Attending Addendum: care coordinated with RADHA Ahumada please refer to her notes for full details, I agree with her notes patient seen and examined, records reviewed by myself as well on exam, patient seen resting in bed, drowsy but comfortable had some nausea earlier denies other active symptoms no other symptoms VS noted and reviewed orientedx3 , not in distress, speaks in sentences with no effort nor accessory muscle use normal rate, regular rhythm, no murmurs clear breath sounds bilaterally non distended, soft, nontender no bipedal edema, erythema, warmth no neuro deficits Hg 9.1 ASSESSMENT AND PLAN ANEMIA FROM ACUTE BLOOD LOSS monitor Hg HISTORY OF VTE resume coumadin when hemostasis stable per Ortho other diagnoses and plan of care as per RADHA Ahumada's notes Lincoln Marin MD Subjective Patient seen and examined. Feeling slightly better today. Still nauseous but able to tolerate some of clear liquid diet after Zofran this morning. Had an episode of emesis last evening but none this morning. Surgical site pain 11/19. Denies any numbness or paresthesias of lower extremities. Has history of hiatal hernia and GERD, which is exacerbated when lying flat. Discussed likelihood of surgeon raising head of bed today, which should improve symptoms. Also receiving IV Pepcid every 12 H. Denies any fever, chills, headache, l ightheadedness, chest pain, palpitations, shortness of breath, vomiting, abdominal pain, dysuria, diarrhea or constipation. + flatus but no BM yet Review of Systems Review of Systems: At least ten systems reviewed and negative except as noted in the HPI. Physical Exam Physical Exam: General Appearance: WD/WN, no apparent distress, resting comfortably lying in supine position Head: normocephalic, atraumatic Eyes: normal inspection, PERRL, EOMI ENT: hearing grossly normal, pharynx normal (moist mucous membranes) Neck: supple, no JVD, no adenopathy Respiratory/Chest: lungs clear to auscultation. No wheezes, rales or rhonci. No respiratory distress or accessory muscle use Cardiovascular: regular rate, rhythm, no murmur, normal peripheral pulses Abdomen/GI: normal bowel sounds, soft, non-tender to palpation Extremities/Musculoskelatal: normal inspection, no calf tenderness, normal capillary refill, no pedal edema, + SCDs Back: Did not examine surgical dressing due to patient's nausea. Drain visualized Neurologic/Psych: alert, normal mood/affect, oriented x 3, sensation and strength grossly intact Skin: normal color, warm/dry Results & Data Vital Signs (Past 12 Hours) Vital Signs Temp Pulse Resp BP Pulse Ox 10/02/18 07:15 36.7 C 76 16 146/72 H 97 10/02/18 02:27 36.6 C 73 16 134/72 100 10/01/18 23:22 36.6 C 63 16 120/64 100 Laboratory Results Short CBC 10/01/18 10/01/18 10/02/18 Range/Units 13:09 20:00 02:03 WBC 7.82 (4.8-10.8) K/uL Hgb 9.2 L 10.1 L 9.1 L (12.0-16.0) g/dL Hct 26.4 L 30.4 L 26.9 L (37-47) % Plt Count 219 (130-400) K/uL BMP 10/02/18 02:03 Sodium 140 Potassium 3.9 Chloride 109 H Carbon Dioxide 27 BUN 7 Creatinine 0.61 Glucose 132 H Calcium 8.5
--- NOTE | 2018-10-02 15:55 | Orthopedic Progress Note ---
Date of Service October 02, 2018 Assessment & Plan (1) H/O lumbosacral spine surgery: At this time we will maintain bedrest but may sit up to tolerance. Tomorrow will reassess most likely begin transfers to the chair. Present on Admission?: Yes Subjective Patient has just a touch of nausea this morning. She is not vomiting. She denies headaches any significant back pain or leg pain. Physical Exam Physical Exam: On exam she was able to sit up in bed. She has good strength testing. Results & Data Vital Signs (Past 12 Hours) Vital Signs Temp Pulse Resp BP BP Pulse Ox 10/02/18 15:14 36.9 C 74 18 107/66 98 10/02/18 12:56 165/92 H 10/02/18 11:20 36.7 C 67 16 152/76 H 99 10/02/18 07:15 36.7 C 76 16 146/72 H 97
[2018-10-02] MEDS: DOCUSATE SODIUM/SENNA 50/8.6MG TAB PO SCH (21:34)
[2018-10-03] MEDS: POLYETHYLENE (MIRALAX) 17 GM PACK PO SCH ×5 (01:13→23:53)
[2018-10-03] MEDS: ACETAMINOPHEN 500 MG TAB PO PRN (05:58)
[2018-10-03 06:12] LABS: Hematocrit (blood only) 25.8 % (37-47); Hemoglobin 8.8 g/dL (12.0-16.0); Mean Corpuscular Hgb Conc 34.1 g/dL (32-36); Mean Corpuscular Volume 103.6 fL (80-100); Mean Platelet Volume 9.3 fL (7.4-10.4); Platelet Count 217 K/uL (130-400); RDW Coefficient of Variation 14.7 % (11.5-14.5); RDW Standard Deviation 55.8 fL (36.4-46.3); Red Blood Count 2.49 M/uL (4.2-5.4); White Blood Count 7.04 K/uL (4.8-10.8)
[2018-10-03 06:35] LABS: INR 1.1 (0.9-1.1); Prothrombin Time 11.5 Seconds (9.0-12.0)
[2018-10-03 06:38] LABS: Calcium 8.2 mg/dl (8.5-10.1); Creatinine Clr Calc Pharmacy 111.8 ml/min; Est GFR (African American) 110.1; Potassium 3.8 mmol/L (3.5-5.1)
[2018-10-03] MEDS: OXYCODONE HCL IR 5 MG TAB (IMMEDIATE RELEASE) PO PRN (08:34)
[2018-10-03] MEDS: ASPIRIN 81 MG ECTAB PO SCH (08:34)
[2018-10-03] MEDS: LOSARTAN POTASSIUM 25 MG TAB PO SCH (08:34)
[2018-10-03] MEDS: HYDROXYUREA 500 MG CAP PO SCH (08:34)
[2018-10-03] MEDS: PANTOprazole 40 MG TAB PO SCH ×2 (08:34→21:02)
[2018-10-03] MEDS: IPRATROPIUM BROMIDE NASAL SPRAY 0.06% 15ML SCH ×2 (08:35→21:03)
[2018-10-03] MEDS: CYANOCOBALAMIN 500 MCG TABLET (VITAMIN B-12) PO SCH (08:35)
[2018-10-03] MEDS: ATORVASTATIN 40 MG TAB PO SCH (08:35)
[2018-10-03] MEDS: FOLIC ACID 1 MG TAB PO SCH (08:35)
--- NOTE | 2018-10-03 11:20 | Hospitalist Progress Note ---
Date of Service October 03, 2018 Assessment & Plan (1) H/O lumbosacral spine surgery: This is a 68-year-old female with a PMH of HTN, HLD, history of recurrent PE on Coumadin, chronic chest pain, essential thrombocytopenia and lumbosacral stenosis who is POD#2 s/p lumbar decompression and fusion L2-S1 by Dr. Eller. -POD#2 s/p lumbar decompression and fusion L2-S1 by Dr. Eller -Per ortho for pain control, wound care and activities -Small dural tear noted in operative note. Bedrest in raised position until surgeon evaluates today -Appears euvolemic. Also tolerating more PO fluids. Continue LR @ 80 ml/hr for now -Developed dry cough. Likely related to GERD but consider CXR if develops SOB or productive cough -Continue incentive spirometry, PT/OT when appropriate (2) Acute blood loss anemia: EBL of 2600 ml total to date including surgery & VIGNESH drain output -Pre-op hgb from August 2018 with hgb of 13. Post-op hgb trending down slightly from 9.1 to 8.8 -Received 1u prbcs intraoperatively -Continue monitoring with daily CBC -Monitor for orthostasis once patient is ambulating more (3) Nausea: Postoperative -- improving -Continue Zofran PRN, IV Phenergan PRN as well (4) Hypertension: Normotensive -Continue losartan (5) Hyperlipidemia: Continue statin (6) History of pulmonary embolism: History of recurrent PE on coumadin, last PE in 2013 -Was bridged with Lovenox preoperatively. Last dose of Coumadin was on 09/25 and bridged SQ Lovenox from 09/28 - 09/30 at 8 AM -Holding Lovenox and coumadin in post-operative setting with dural tear, per Dr. Eller -- still with VIGNESH drain output. Per primary service for when to resume coumadin -Home coumadin schedule with 5mg SuMoWeFr and 2.5mg TuThSa. To follow up with anticoagulation clinic following discharge home (7) Essential thrombocytosis: Continue hydroxyurea (8) Sleep apnea: Continue home 2L nasal cannula oxygen (9) Acid reflux: IV Pepcid Q12H for now. Once upright and mobile, consider resuming to home PPI and H2 chris DVT Ppx: SCDs PCP: Ronaldo Dispo: Per primary service Patient seen in collaboration with Dr. Marin. Please see addendum. Supervising Physician Co-Signing Physician Notes delayed entry date of service as noted above Attending Addendum: care coordinated with RADHA Ahumada please refer to her notes for full details, I agree with her notes patient seen and examined, records reviewed by myself as well on exam, patient seen resting in bed, appears brighter states she feels improved compared to yesterday pain adequately managed denies other active symptoms no other symptoms VS noted and reviewed orientedx3 , not in distress, speaks in sentences with no effort nor accessory muscle use normal rate, regular rhythm, no murmurs clear BS BL non distended, soft, nontender no bipedal edema, erythema, warmth no neuro deficits Hg 8.8 ASSESSMENT AND PLAN ANEMIA FROM ACUTE BLOOD LOSS stable at ~9 HISTORY OF VTE resume coumadin when hemostasis stable per Ortho other diagnoses and plan of care as per RADHA Ahumada's notes Lincoln Marin MD Subjective Patient seen and examined. Clinically improved-- no nausea, tolerating clears well. Surgical site pain decreased to 4/10. No new numbness or paresthesias of lower extremities. Has history of hiatal hernia and GERD, which is exacerbated when lying flat and has improved with head of bed elevated. Dry cough, but no productive sputum or shortness of breath. Urinating well with lagunas catheter and + flatus, no BM yet. Denies any fever, chills, headache, lightheadedness, chest pain, palpitations, shortness of breath, vomiting, abdominal pain or dysuria. Review of Systems Review of Systems: At least ten systems reviewed and negative except as noted in the HPI. Physical Exam Physical Exam: General Appearance: WD/WN, no apparent distress, resting comfortably, more alert Head: normocephalic, atraumatic Eyes: normal inspection, PERRL, EOMI ENT: hearing grossly normal, pharynx normal (moist mucous membranes) Neck: supple, no JVD, no adenopathy Respiratory/Chest: lungs clear to auscultation. No wheezes, rales or rhonci. No respiratory distress or accessory muscle use Cardiovascular: regular rate, rhythm, no murmur, normal peripheral pulses Abdomen/GI: normal bowel sounds, soft, non-tender to palpation Extremities/Musculoskelatal: normal inspection, no calf tenderness, normal capillary refill, no pedal edema Back: Lumbosacral dressing appears clean, dry, intact. VIGNESH drain visualized with serosanguineous drainage. Neurologic/Psych: alert, normal mood/affect, oriented x 3 Skin: normal color, warm/dry Results & Data Vital Signs (Past 12 Hours) Vital Signs Temp Pulse Resp BP Pulse Ox 10/03/18 07:45 36.8 C 72 14 132/62 100
[2018-10-03] MEDS: ONDANSETRON INJ 2 MG/ML 2 ML VIAL IV PRN ×2 (12:37→17:58)
--- NOTE | 2018-10-03 15:22 | Orthopedic Progress Note ---
Date of Service October 03, 2018 Assessment & Plan (1) H/O lumbosacral spine surgery: We will begin transfers to the chair today. Pending her progress we will initiate physical therapy tomorrow. Present on Admission?: Yes Subjective Patient's back pain is controlled. Her nausea is improved. She has no headaches. No leg pain. Physical Exam Physical Exam: On exam she is good strength testing appears comfortable. Results & Data Vital Signs (Past 12 Hours) Vital Signs Temp Pulse Resp BP Pulse Ox 10/03/18 07:45 36.8 C 72 14 132/62 100
[2018-10-03] MEDS: LACTATED RINGER'S 1,000 ML IV SCH (16:54)
[2018-10-03] MEDS: ACETAMINOPHEN 1,000 MG/100 ML VIAL IV PRN (18:06)
[2018-10-03] MEDS: DOCUSATE SODIUM/SENNA 50/8.6MG TAB PO SCH (21:02)
[2018-10-04 06:11] LABS: Hematocrit (blood only) 26.4 % (37-47); Hemoglobin 8.7 g/dL (12.0-16.0); Mean Platelet Volume 9.6 fL (7.4-10.4); Platelet Count 216 K/uL (130-400); RDW Coefficient of Variation 14.5 % (11.5-14.5); RDW Standard Deviation 55.9 fL (36.4-46.3); Red Blood Count 2.49 M/uL (4.2-5.4); White Blood Count 5.51 K/uL (4.8-10.8)
[2018-10-04] MEDS: ACETAMINOPHEN 1,000 MG/100 ML VIAL IV PRN (06:14)
[2018-10-04 06:19] LABS: INR 1.1 (0.9-1.1); Prothrombin Time 11.5 Seconds (9.0-12.0)
[2018-10-04] MEDS: POLYETHYLENE (MIRALAX) 17 GM PACK PO SCH ×4 (06:20→22:57)
[2018-10-04 06:39] LABS: BUN Creatinine Ratio 15.1 (10-20); Calcium 8.1 mg/dl (8.5-10.1); Creatinine Clr Calc Pharmacy 109.8 ml/min; Est GFR (African American) 109.5; Est GFR (Non-African American) 94.5; Potassium 3.5 mmol/L (3.5-5.1)
[2018-10-04] MEDS: ASPIRIN 81 MG ECTAB PO SCH (07:32)
[2018-10-04] MEDS: CYANOCOBALAMIN 500 MCG TABLET (VITAMIN B-12) PO SCH (07:32)
[2018-10-04] MEDS: FOLIC ACID 1 MG TAB PO SCH (07:32)
[2018-10-04] MEDS: ATORVASTATIN 40 MG TAB PO SCH (07:32)
[2018-10-04] MEDS: LOSARTAN POTASSIUM 25 MG TAB PO SCH (07:32)
[2018-10-04] MEDS: PANTOprazole 40 MG TAB PO SCH ×2 (07:32→20:21)
[2018-10-04] MEDS: HYDROXYUREA 500 MG CAP PO SCH (07:32)
[2018-10-04] MEDS: IPRATROPIUM BROMIDE NASAL SPRAY 0.06% 15ML SCH ×2 (07:33→20:22)
[2018-10-04] MEDS: OXYCODONE HCL IR 5 MG TAB (IMMEDIATE RELEASE) PO PRN ×4 (09:44→22:54)
--- NOTE | 2018-10-04 10:33 | Orthopedic Progress Note ---
Date of Service October 04, 2018 Assessment & Plan (1) H/O lumbosacral spine surgery: This time will initiate physical therapy today. Advance her diet. DC drain. Present on Admission?: Yes Subjective Patient was able to sit for meals throughout the day yesterday and this morning. Denies any nausea vomiting or headaches. Pain well controlled. Physical Exam Physical Exam: Patient appears comfortable with good strength testing. Results & Data Vital Signs (Past 12 Hours) Vital Signs Temp Pulse Pulse Resp BP BP Pulse Ox 10/04/18 09:41 86 20 146/79 H 98 10/04/18 07:24 36.9 C 73 18 134/74 95 10/03/18 23:25 36.7 C 69 16 131/73 100
[2018-10-04] MEDS: DOCUSATE SODIUM/SENNA 50/8.6MG TAB PO SCH (20:22)
[2018-10-05] MEDS: ACETAMINOPHEN 500 MG TAB PO PRN ×2 (07:13→20:05)
[2018-10-05] MEDS: IPRATROPIUM BROMIDE NASAL SPRAY 0.06% 15ML SCH ×2 (07:15→20:06)
[2018-10-05] MEDS: CYANOCOBALAMIN 500 MCG TABLET (VITAMIN B-12) PO SCH (07:15)
[2018-10-05] MEDS: PANTOprazole 40 MG TAB PO SCH ×2 (07:15→20:05)
[2018-10-05] MEDS: ATORVASTATIN 40 MG TAB PO SCH (07:15)
[2018-10-05] MEDS: LOSARTAN POTASSIUM 25 MG TAB PO SCH (07:16)
[2018-10-05] MEDS: FOLIC ACID 1 MG TAB PO SCH (07:16)
[2018-10-05] MEDS: ASPIRIN 81 MG ECTAB PO SCH (07:16)
[2018-10-05] MEDS: LORazepam 0.5 MG TAB PO PRN ×2 (07:17→21:23)
[2018-10-05] MEDS: POLYETHYLENE (MIRALAX) 17 GM PACK PO SCH (07:23)
[2018-10-05] MEDS ORDERED: HYDROCODONE/ACETAMOPHEN 5/325MG TAB PO PRN (07:36)
--- NOTE | 2018-10-05 08:04 | Orthopedic Progress Note ---
Date of Service October 05, 2018 Assessment & Plan (1) H/O lumbosacral spine surgery: We will place the patient on 2 doses of Decadron 6 mg IV every 8 hours x2. Hopefully this helped decrease her pain symptoms. Also change her from oxycodone to hydrocodone to see if she tolerates this any better. We will continue mobilization efforts that she has no headache bedside. Hopefully once we get her pain and nausea controlled she will progress nicely. We will see her tomorrow see how she is coming along. Subjective Patient was seen bedside in room 321. She had a rough night last night where she had a lot of pain and had a hard time falling asleep. She has hypersensitivity in her legs and is concerned due to the pain. Unfortunately she does not tolerate pain medication very well and became quite nauseous with her pain meds. She was given an antiemetic which did not seem to help. She seems to be doing better this morning but still is uncomfortable. She denies any other numbness, tingling, paresthesias. Physical Exam Physical Exam: On exam she is alert and oriented. She is not photophobic. She has no nuchal signs. She is nontender about the back itself. There is no fluid wave. Dressing is clean dry and intact. Calves are supple nontender abdomen supple nontender. Strength and sensation both intact. Results & Data Vital Signs (Past 12 Hours) Vital Signs Temp Pulse Pulse Resp BP Pulse Ox 10/05/18 07:32 37.0 C 80 18 147/79 H 98 10/05/18 00:36 75 154/80 H 95 10/04/18 23:38 36.7 C 81 16 137/76 93
[2018-10-05] MEDS: HYDROXYUREA 500 MG CAP PO SCH (08:07)
[2018-10-05] MEDS: DEXAMETHASONE SOD PHOSPHATE 6 MG in SYRINGE 0 ML IV SCH ×2 (08:07→15:41)
--- NOTE | 2018-10-05 12:35 | Hospitalist Progress Note ---
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 Eller. -Small dural tear noted in operative note. - stable overall (2) Acute blood loss anemia: EBL of 2600 ml total to date including surgery & VIGNESH drain output -Pre-op hgb from August 2018 with hgb of 13. Post-op hgb trending down slightly from 9.1 to 8.8 -Received 1u prbcs intraoperatively Hg stable at 8.7 monitor daily (3) Nausea: Postoperative - much better -Continue Zofran PRN, IV Phenergan PRN as well (4) Hypertension: Normotensive -Continue losartan (5) Hyperlipidemia: Continue statin (6) History of pulmonary embolism: History of recurrent PE on coumadin, last PE in 2013 -Was bridged with Lovenox preoperatively. Last dose of Coumadin was on 09/25 and bridged SQ Lovenox from 09/28 - 09/30 at 8 AM -Holding Lovenox and coumadin in post-operative setting with dural tear, per Dr. Eller - resume coumadin when hemodynamically stable as per Ortho SVC -Home coumadin schedule with 5mg SuMoWeFr and 2.5mg TuThSa. To follow up with anticoagulation clinic following discharge home (7) Essential thrombocytosis: Continue hydroxyurea (8) Sleep apnea: Continue home 2L nasal cannula oxygen (9) Acid reflux: IV Pepcid Q12H for now. DVT Ppx: SCDs PCP: Ronaldo Dispo: Per primary service Subjective ff up for back surgery seen resting in bed, comfortable pain adequately controlled mild nausea, resolved denies chest pain, dyspnea, dizziness, palpitations no other symptoms Review of Systems Review of Systems: All systems reviewed & are unremarkable except as noted in HPI & below Physical Exam Physical Exam: General- oriented x 3, not in distress, speaks in sentences with no effort or accessory muscle use Eyes- anicteric Neck- no JVD Lungs- clear breath sounds bilaterally, no rales/wheezes Heart- normal rate, regular rhythm; no murmurs Abdomen- normal bowel sounds, nondistended, soft, nontender Back- dressing in place- no bleeding, no discharge Extremities- no pretibial edema, no calf tenderness Neuro- alert, oriented x 3; no gross focal neurologic deficits Skin- warm & dry Results & Data Vital Signs (Past 12 Hours) Vital Signs Temp Pulse Pulse Resp BP Pulse Ox 10/05/18 07:32 37.0 C 80 18 147/79 H 98 10/05/18 00:36 75 154/80 H 95
[2018-10-05 13:01] LABS: Hematocrit (blood only) 28.5 % (37-47); Hemoglobin 9.4 g/dL (12.0-16.0)
[2018-10-05] MEDS: DOCUSATE SODIUM/SENNA 50/8.6MG TAB PO SCH (20:05)
--- NOTE | 2018-10-05 20:49 | Hospitalist Progress Note ---
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 Eller. -Small dural tear noted in operative note. - remains stable overall (2) Acute blood loss anemia: EBL of 2600 ml total to date including surgery & VIGNESH drain output -Pre-op hgb from August 2018 with hgb of 13. Post-op hgb trending down slightly from 9.1 to 8.8 -Received 1u prbcs intraoperatively Hg stable at 9.4 monitor daily (3) Nausea: Postoperative - much better -Continue Zofran PRN, IV Phenergan PRN as well (4) Hypertension: Normotensive -Continue losartan (5) Hyperlipidemia: Continue statin (6) History of pulmonary embolism: History of recurrent PE on coumadin, last PE in 2013 -Was bridged with Lovenox preoperatively. Last dose of Coumadin was on 09/25 and bridged SQ Lovenox from 09/28 - 09/30 at 8 AM -Holding Lovenox and coumadin in post-operative setting with dural tear, per Dr. Eller - resume coumadin when hemodynamically stable as per [facility] -Home coumadin schedule with 5mg SuMoWeFr and 2.5mg TuThSa. To follow up with anticoagulation clinic following discharge home (7) Essential thrombocytosis: Continue hydroxyurea (8) Sleep apnea: Continue home 2L nasal cannula oxygen (9) Acid reflux: IV Pepcid Q12H for now. DVT Ppx: SCDs PCP: Ronaldo Dispo: Per primary service Subjective ff up for back surgery seen walking in the room in good spirits comfortable states she feels better overall pain adequately managed less nausea no chest pain, dyspnea, palpitations, dizziness denies other symptoms Review of Systems Review of Systems: All systems reviewed & are unremarkable except as noted in HPI & below Physical Exam Physical Exam: General- oriented x 3, not in distress, speaks in sentences with no effort or accessory muscle use Eyes- anicteric Neck- no JVD Lungs- clear breath sounds bilaterally no wheezing no rales Heart- normal rate, regular rhythm; no murmurs Abdomen- normal bowel sounds, nondistended, soft, nontender Extremities- no pretibial edema, no calf tenderness Neuro- alert, oriented x 3; no gross focal neurologic deficits Skin- warm & dry Results & Data Vital Signs (Past 12 Hours) Vital Signs Temp Pulse Resp BP Pulse Ox 10/05/18 14:57 37.2 C 79 18 115/69 95 Laboratory Results Laboratory Results - last 24 hr 10/05/18 12:45 Hgb 9.4 L Hct 28.5 L
[2018-10-06] MEDS: LOSARTAN POTASSIUM 25 MG TAB PO SCH (07:24)
[2018-10-06] MEDS: PANTOprazole 40 MG TAB PO SCH (07:24)
[2018-10-06] MEDS: ATORVASTATIN 40 MG TAB PO SCH (07:24)
[2018-10-06] MEDS: CYANOCOBALAMIN 500 MCG TABLET (VITAMIN B-12) PO SCH (07:24)
[2018-10-06] MEDS: ASPIRIN 81 MG ECTAB PO SCH (07:25)
[2018-10-06] MEDS: FOLIC ACID 1 MG TAB PO SCH (07:25)
[2018-10-06] MEDS: IPRATROPIUM BROMIDE NASAL SPRAY 0.06% 15ML SCH (07:25)
[2018-10-06] MEDS: HYDROXYUREA 500 MG CAP PO SCH (07:26)
--- NOTE | 2018-10-06 10:18 | Discharge Summary ---
Date of Service October 06, 2018 Admission HPI Per Admitting Provider Presents with chronic persistent back and leg pain. After failing extensive course of nonoperative care she is here for surgical intervention. Principal Diagnosis Lumbar spinal stenosis with neurogenic claudication Discharge Data Allergies Allergy/AdvReac Type Severity Reaction Status Date / Time Penicillins Allergy Unknown PT NOT Verified 10/01/18 09:39 SURE, TOLD SINCE CHILDHOOD HAD REACTION TO PCN scallops Allergy Unknown throat Verified 10/01/18 09:39 swelling Sulfa (Sulfonamide Allergy Unknown PT NOT Verified 10/01/18 09:39 Antibiotics) SURE, ? BREATHING ISSUE tramadol AdvReac Severe SEVERE Verified 10/01/18 09:39 NAUSEA Consultations 10/01/18 15:51 Consult Case Management - Discharge Planning Routine Consult Hospitalist Routine Procedures Performed Operation Date: 08/29/18 10:05 <No data on this case meets the specified criteria> Operation Date: 10/01/18 10:55 Actual Procedures p L2-S1 Decompression and Fusion, use of infuse, use of conduct, use of osteoamp, Spinal Cord Monitoring, (Not Applicable) - Kory Eller DO s repair of dural tear(Not Applicable) - Kory Eller DO Ordered Studies 10/01/18 10:55 FL fluoroscopy <1hr Routine FL lumbar spine 2-3V Routine Hospital Course (1) H/O lumbosacral spine surgery: Patient with lumbar decompression fusion tolerated as well as taken to orthopedic for postoperative. I did keep her at bedrest postop day #1 postop pain and to begin transfers. She progressed probably afterwards with physical therapy. And subsequently discharged home. Discharge orders instructions from the chart for review. Total Time Total Time Spent Total Time Spent (In Minutes): 20 minutes Discharge Plan Discharge Items Patient Disposition: Home - Home Health Services Reason For Visit: LUMBAR SPINAL STENOSIS W/NEUROGENIC CLAUDICATION Discharge Diagnosis: lumbar stenosis Discharge Goals: Improve function Activity: Per 'Additional Instructions' section Non-emergency contact: Primary Care Provider Call non-emergency contact if: you have any medication questions Follow-up/Referrals: Heather Higgins MD [Primary Care Provider] - Diet: Regular Addtl Provider Instructions: ACTIVITY RECOMMENDATIONS: SELF CARE INSTRUCTIONS AFTER THORACIC/LUMBAR FUSIONS 1. You may walk to your tolerance. It is good exercise for your legs and back. Expect some back and intermittent leg aches and pains. 2. You may perform "counter-top" level activities (make a sandwich, herson with a project, etc.). 3. No bending or lifting of more than 10 pounds or back twisting of any nature (roll like a log when turning in bed). 4. You may ride in a car for 20-30 minutes at a time. No driving until after your first visit with your doctor. 5. Frequent changes of position and restricting sitting to 30 minutes at a time will help limit the amount of back spasms and stiffness you may experience. 6. You may discontinue the use of ambulatory aids (cane, crutches, etc.) once your strength and confidence allow. 7. You may flat folding machine operator the shower and let water strike your incision when you arrive home at least once daily. Do not take a tub bath, sit in a hot tub or go into a swimming pool until after your first recheck in the office. SPECIAL CARE INSTRUCTIONS: VERY IMPORTANT TO READ AND REVIEW A. Your surgical incision has been closed with a cosmetic suture under the skin that will dissolve in about 6 weeks. In 14 days, you can use a pair of clean scissors and cut the suture that is left outside of the skin at the ends of your incision. 1. The small skin tapes can be removed 7 days after surgery if they have not fallen off by that point. 2. You may keep the wound open to air as much as possible to promote healing after post-op day number 5 unless told otherwise by your doctor. 3. If you think the wound looks like it is becoming infected (redness or worsening drainage) and/or you are experiencing fever, chill or worsening back pain and muscle spasms, contact the office so that we may evaluate you as soon as possible. B. Complications are uncommon, but please contact us if you have any signs or symptoms of: 1. wound infection (fever higher than 102.5 degrees F, redness, separation of wound, drainage, or increasing pain from the incision) 2. blood clots in legs (pain, swelling, redness and warmth in legs) 3. urinary tract infection (fever higher than 102.5 degrees F, burning upon urination or increased frequency of urination) 4. nerve problems (inability to walk on your toes or heels, numbness, loss of bowel or bladder control) 5. any other symptoms that concern you C. Please call the office at if you have any concerns or questions about your operation or recovery. D. No smoking! Smoking drastically decreases the chance of a solid fusion. E. Do not take any anti-inflammatory medications (Indocin, Advil, Motrin, Aspirin, Naprosyn, etc.) as these may inhibit the chance of a solid fusion. Tylenol is okay to take for pain. MANAGING PAIN AFTER SPINAL SURGERY 1. Narcotic medication is intended for short-term use and will be provided for surgical pain. Surgical pain usually lasts for a period of 4-6 weeks. Narcotic medication includes Percocet, Vicodin, Darvocet, Tylenol #3 or Lortab. 2. Longer-term pain is more appropriately treated with non-narcotic medication such as Tylenol ES. 3. Muscle spasm is not appropriately treated with narcotics. Muscle relaxers such as Soma, Flexeril or Skelaxin can be used along with Tylenol ES. 4. Remember that we all live with some "aches and pains". This is not unusual or uncommon after an injury or as we get older. a. Back pain is expected and may include muscle spasms for 4 to 6 weeks after surgery. The pain should gradually improve. If the pain worsens for no apparent reason, please contact the office. b. Intermittent leg pain may also be experienced and should not be concerned about unless it worsens for no apparent reason. If so, please contact the office. 5. We will provide appropriate medication within the normal guidelines of their prescribed use. We will also be very cautious and aware of potential abuse and extended duration of patients' medication needs. a. Pain medications are for your comfort and to assist with sleep and rest so that the tissue can heal. They are not provided in order to return to normal activity and should not be used through the day. To do so or worsening pain at night can result from ongoing tissue damage and development of tolerance to the prescribed medicine. 6. Please allow 2-3 days to process refills. Prescriptions will not be mailed but must be picked up at the office. FOLLOW UP VISIT: Keep your scheduled follow-up appointment. Any questions, please call the office at . Prescriptions: New hydrocodone-acetaminophen [[place]] 5-325 mg Tablet 1 tab PO Q6H PRN (Reason: Pain) Qty: 30 RF: 0 lorazepam 0.5 mg Tablet 0.5 mg PO Q12 Qty: 30 RF: 0 Continued atorvastatin 40 mg Tablet 40 mg PO QAM RF: 0 hydroxyurea 500 mg Capsule 500 mg PO SUMOTUTHFRSA@0900 RF: 0 hydroxyurea 500 mg Capsule 2 tab PO WE@0900 RF: 0 polyethylene glycol 3350 [Miralax] 17 gram Powder In Packet 17 g PO DAILY PRN (Reason: Constipation) RF: 0 ranitidine HCl 300 mg Tablet 300 mg PO QDD RF: 0 ondansetron HCl 4 mg Tablet 4 mg PO UD PRN (Reason: Nausea) RF: 0 cyanocobalamin (vitamin B-12) [Vitamin B-12] 1,000 mcg Tablet 1,000 mcg PO DAILY RF: 0 warfarin [Jantoven] 2.5 mg Tablet 2.5 mg PO TUTHSA@1600 RF: 0 aspirin [Aspir-81] 81 mg Tablet,Delayed Release (Dr/Ec) 81 mg PO DAILY RF: 0 Breathe Right Strip RF: 0 triamcinolone acetonide 0.1 % Cream 1 applic TOPICAL UD PRN (Reason: Skin Irritation) RF: 0 warfarin [Jantoven] 5 mg Tablet 5 mg PO SUMOWEFR@1600 RF: 0 losartan 25 mg Tablet 25 mg PO DAILY RF: 0 nitroglycerin 0.4 mg Tablet, Sublingual 1 tab sublingual UD PRN (Reason: Chest Pain) RF: 0 omeprazole 20 mg Capsule,Delayed Release(Dr/Ec) 20 mg PO BID RF: 0 folic acid 1 mg Tablet 1 mg PO DAILY RF: 0 fluticasone propionate 50 mcg/actuation [place],Suspension 2 spray INTRANASAL BID RF: 0 ipratropium bromide 0.03 % [place],Non-Aerosol 2 spray INTRANASAL BID RF: 0 omega 7-[id number]-fish oil [Fish Oil] 1,000 mg (120 mg-180 mg) Capsule 1 cap PO DAILY RF: 0 glycerin (adult) [Suppository Adult] Suppository 1 supp AL DAILY PRN (Reason: Constipation) RF: 0 [place] Heartburn+Gas 750-80 mg Tablet,Chewable 1 tab PO UD PRN (Reason: INDEGESTION) RF: 0 Discontinued enoxaparin 100 mg/mL syringe 100 mg subcut Q12H RF: 0 Stand-Alone Forms: [facility] Discharge Orders: Discharge Order (Routine); Ordered 10/06/18 Ordered By: Kory Eller Admission Data Admit Date/Time: 10/01/18 13:45 Attending Provider: Kory Eller Admit Provider: Kory Eller Primary Care Provider: Heather Higgins Other Providers: Andrea Ferrera Robin A Service: Surgical Services
[2018-10-06] MEDS: LORazepam 0.5 MG TAB PO PRN (13:06)
== END 2018-10-06 13:39 | disposition home health service (06) | DRG 460 ==
LOC: ASU 09:07 → 3E 13:45

== ENCOUNTER 2025-01-29 18:18 | Observation (INO) ==
--- NOTE | 2025-01-29 18:49 | Emergency Department Note ---
Impression & Plan Epigastric abdominal pain, Elevated troponin I level, Hypokalemia ED Provider Note NAME: LUIS FERNANDO MORENO AGE: 74 SEX: F : 1950 ARRIVES VIA: Walk-In INFORMANT: Patient, the patient's family ED PROVIDER(S): Robby Valero DO CHIEF COMPLAINT: Abdominal pain HPI: The patient is a 74-year-old female who presented to the emergency department for evaluation of abdominal pain. The patient's had upper abdominal pain and lower chest pain over the course the last several weeks. She has been seen by her family doctor. Laboratory and radiographic studies have been obtained recently. The patient has been having burping throughout the day. She has not been feeling well. She has been complaining of more pain to her family members. They brought her to the emergency department for further evaluation. The patient did have a CT of the abdomen and pelvis. She was found have a large hiatal hernia. She has had upper and lower endoscopy which did not reveal any obvious source for her pain. ROS: See above HPI for pertinent positives & negatives. A total of 10 systems reviewed and were otherwise negative. PAST MEDICAL HISTORY: See Below PAST SURGICAL HISTORY: See Below FAMILY HISTORY: See Below SOCIAL HISTORY: See Below HOME MEDICATIONS: See Below ALLERGIES: See Below VITALS: See Below PHYSICAL EXAMINATION: GENERAL: Patient is awake alert in no acute distress patient is resting comfortably and showing no signs of anxiety EYES: The conjunctivae are clear. The pupils are round and reactive. EARS, NOSE, MOUTH AND THROAT: The nose is without any evidence of any deformity. NECK: The neck is nontender and supple. RESPIRATORY: Normal respiratory effort is noted there is no evidence of wheezing rhonchi or rales CARDIOVASCULAR: Regular rate and rhythm noted there no murmurs rubs or gallops normal S1 normal S2. GASTROINTESTINAL: The abdomen is soft and mildly distended. There is diffuse tenderness palpation especially in the upper quadrants. There is mild guarding in the right upper quadrant. MUSCULOSKELETAL/EXTREMITIES: There is no evidence of gross deformity full range of motion is noted in the hips and shoulders. SKIN: Skin is warm and dry. Trace pedal edema was noted. NEUROLOGIC: Patient is awake alert and to person place and situation. MEDICAL DECISION MAKING: The patient is a 74-year-old emergency department for an evaluation of upper abdominal pain. The patient's had upper abdominal pain over the course last several weeks. She has had a workup through the [employer] system. Upper and lower endoscopy was done. The patient ultimately was diagnosed with a large hiatal hernia. The patient presents tonight because of worsening upper abdominal pain. I discussed the patient's laboratory and radiographic studies with her. She was found to have a low potassium. She was treated with her potassium replacement as well as pain medication and IV fluids. She was reevaluated multiple times. Given the patient's findings I did discuss her condition with the on-call hospitalist group. They have agreed to evaluate the patient in the emergency department for further management and disposition. Triage Nursing notes reviewed. Prior medical records reviewed Vital Signs: reviewed and remarkable for elevated blood pressure. Differential diagnosis: Etiologies such as appendicitis, diverticulitis, obstruction, inflammatory bowel disease, renal colic, PUD, biliary pathology, pancreatitis, mesenteric ischemia, aortic pathology, infections, genitourinary, UTI, perforated viscus, as well as others were entertained. ER treatment provided: See below Diagnostics interpreted by me: ECG: EKG was obtained in the emergency department. My interpretation is normal sinus rhythm at 72 bpm. There is no ectopy. Nonspecific ST abnormalities with poor R wave progression was noted. LVH was suggested by voltage criteria. This was compared to a tracing from March 17, 2023. No changes were noted. Cardiac Monitoring: An order was placed for continuous cardiac monitoring. The monitor shows a rate of 65 bpm with sinus rhythm. Laboratory studies: As stated above and show below. Imaging studies: See below. Radiographic imaging was reviewed by myself Consultation(s): I discussed this case with Dr. Duran who is on-call for the [facility] hospitalist group. 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 Surgical History History of cardiac cath YRS AGO, [facility] PT CAN'T REMEMBER REASON...DENIES STENTS History of tubal ligation History of shoulder surgery R & L - SEPERATE PROCEDURES FOR Family History Other Family history of stroke Heart disease Social History Smoking Status: Never smoker Do You Dip or Chew Tobacco: No; Hx Alcohol Use: No Hx Substance Use: No Preferred Language: Yi Communication Ability: Effective Communication Ability Comment: LEARNING DISABILITY/CAN'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 Grades 9 Thru 12 Visiting Teacher Required: No Beliefs That Will Affect Care: Quaker Quaker Beliefs: JUDAISM Current Living Situation: Significant Other Feels Safe at Home: Yes Assistive Devices: Denture - Upper, Glasses and Walker Allergies Allergies Allergy/AdvReac Type Severity Reaction Status Date / Time scallops Allergy Severe throat Verified 01/29/25 20:10 swelling Penicillins Allergy Intermediate RASH/NAUSEA Verified 01/29/25 20:10 Sulfa (Sulfonamide Allergy Intermediate RASH/NAUSEA Verified 01/29/25 20:10 Antibiotics) tramadol AdvReac Severe SEVERE Verified 01/29/25 20:10 NAUSEA lisinopril AdvReac Intermediate Cough Verified 01/29/25 20:10 lubiprostone [From Amitiza] AdvReac Intermediate Hypotension Verified 01/29/25 20:10 Home Meds Home Medications Medication Instructions Recorded Confirmed cyanocobalamin (vitamin B-12) 1,000 mcg PO HS 08/08/18 01/29/25 1,000 mcg tablet (Vitamin B-12) nasal dilators (Breathe Right 08/08/18 01/29/25 strips) nitroglycerin 0.4 mg sublingual 0.4 mg sublingual DIRECTED PRN 08/08/18 01/29/25 tablet Chest Pain polyethylene glycol 3350 17 gram 17 g PO HS 08/08/18 01/29/25 oral powder packet (Miralax) warfarin 5 mg tablet (Jantoven) 5 mg PO 2XWK 08/08/18 01/29/25 acetaminophen 500 mg tablet 1,000 mg PO BID 01/25/21 01/29/25 (Tylenol Extra Strength) hydroxyurea 500 mg capsule 500 mg PO DAILY 01/25/21 01/29/25 aluminum-mag hydroxide-simethicone 15 ml PO Q6H PRN 04/26/22 01/29/25 200 mg-200 mg-20 mg/5 mL oral susp HEARTBURN/INDIGESTION aspirin 81 mg tablet,delayed 81 mg PO QAM 04/26/22 01/29/25 release duloxetine 30 mg capsule,delayed 30 mg PO QAM 04/26/22 01/29/25 release famotidine 20 mg tablet 40 mg PO HS HEARTBURN/INDIGESTION 04/26/22 01/29/25 folic acid 800 mcg tablet 0.8 mg PO HS 04/26/22 01/29/25 atorvastatin 80 mg tablet 80 mg PO QAM 01/29/25 01/29/25 cholecalciferol (vitamin D3) 25 25 mcg PO HS 01/29/25 01/29/25 mcg (1,000 unit) capsule (Vitamin D3) denosumab 60 mg/mL subcutaneous 60 mg subcut .[id number] 01/29/25 01/29/25 syringe (Prolia) hydrocodone 5 mg-acetaminophen 325 1 tab PO Q8H PRN Pain 01/29/25 01/29/25 mg tablet losartan 100 mg tablet 100 mg PO QAM 01/29/25 01/29/25 nystatin 100,000 unit/gram topical 1 applic topical BID PRN SKIN FOLDS 01/29/25 01/29/25 powder omeprazole 40 mg capsule,delayed 40 mg PO QAM 01/29/25 01/29/25 release phenylephrine 5 mg-acetaminophen 1 cap PO DIRECTED PRN Cold 01/29/25 01/29/25 325 mg capsule (Vicks Sinex Symptoms Daytime) simethicone 80 mg chewable tablet 80 mg PO Q6H PRN GAS DISCOMFORT 01/29/25 01/29/25 sucralfate 1 gram tablet (Carafate) 1 g PO ACHS 01/29/25 01/29/25 warfarin 5 mg tablet 2.5 mg PO 5XWK 01/29/25 01/29/25 Previous Rx's Medication Instructions Recorded ondansetron 4 mg disintegrating 4 mg PO Q6H PRN nausea and 01/25/21 tablet vomiting #14 tabs Results & Data (ED) Vital Signs Vital Signs - 24 hr 01/29/25 18:21 01/29/25 18:30 01/29/25 18:32 Temperature 36.0 C L Temperature Source Temporal Artery Scan Pulse Rate 89 78 Pulse Rate [Left] Pulse Rate from SpO2 Sensor Respiratory Rate 17 20 Blood Pressure 170/97 H 206/102 H Blood Pressure [Left Arm] Blood Pressure Mean 121 160 Blood Pressure Mean [Left Arm] Pulse Oximetry 96 98 Oxygen Delivery Method Room Air Room Air Oxygen Flow Rate Sepsis Recent Fever Within 48 Hours No Sepsis New/Unexplained Change in Mental Status N/A Sepsis Action Taken by Nursing No Action Required 01/29/25 18:33 01/29/25 18:42 01/29/25 18:45 Temperature Temperature Source Pulse Rate 78 78 Pulse Rate [Left] Pulse Rate from SpO2 Sensor 78 78 Respiratory Rate 27 H 28 H Blood Pressure Blood Pressure [Left Arm] Blood Pressure Mean Blood Pressure Mean [Left Arm] Pulse Oximetry 96 96 Oxygen Delivery Method Room Air Oxygen Flow Rate 96 Sepsis Recent Fever Within 48 Hours Sepsis New/Unexplained Change in Mental Status Sepsis Action Taken by Nursing 01/29/25 18:45 01/29/25 18:47 01/29/25 18:51 Temperature Temperature Source Pulse Rate 78 76 Pulse Rate [Left] 78 Pulse Rate from SpO2 Sensor 76 Respiratory Rate 17 23 Blood Pressure Blood Pressure [Left Arm] 186/102 H Blood Pressure Mean Blood Pressure Mean [Left Arm] 130 Pulse Oximetry 96 96 Oxygen Delivery Method Room Air Oxygen Flow Rate Sepsis Recent Fever Within 48 Hours Sepsis New/Unexplained Change in Mental Status Sepsis Action Taken by Nursing 01/29/25 18:52 01/29/25 18:52 01/29/25 18:54 Temperature Temperature Source Pulse Rate 77 Pulse Rate [Left] Pulse Rate from SpO2 Sensor 78 Respiratory Rate 24 19 Blood Pressure 185/124 H 185/124 H Blood Pressure [Left Arm] Blood Pressure Mean 145 145 Blood Pressure Mean [Left Arm] Pulse Oximetry 96 97 Oxygen Delivery Method Oxygen Flow Rate Sepsis Recent Fever Within 48 Hours Sepsis New/Unexplained Change in Mental Status Sepsis Action Taken by Nursing 01/29/25 19:00 01/29/25 19:30 01/29/25 19:42 Temperature Temperature Source Pulse Rate 67 Pulse Rate [Left] Pulse Rate from SpO2 Sensor 67 Respiratory Rate 23 Blood Pressure 178/119 H 177/91 H Blood Pressure [Left Arm] Blood Pressure Mean 149 148 Blood Pressure Mean [Left Arm] Pulse Oximetry 98 Oxygen Delivery Method Oxygen Flow Rate Sepsis Recent Fever Within 48 Hours Sepsis New/Unexplained Change in Mental Status Sepsis Action Taken by Nursing 01/29/25 19:54 01/29/25 20:00 01/29/25 20:00 Temperature Temperature Source Pulse Rate 72 Pulse Rate [Left] Pulse Rate from SpO2 Sensor 71 Respiratory Rate 22 Blood Pressure 172/81 H 172/81 H Blood Pressure [Left Arm] Blood Pressure Mean 135 135 Blood Pressure Mean [Left Arm] Pulse Oximetry 95 Oxygen Delivery Method Oxygen Flow Rate Sepsis Recent Fever Within 48 Hours Sepsis New/Unexplained Change in Mental Status Sepsis Action Taken by Nursing 01/29/25 20:00 01/29/25 20:00 01/29/25 20:12 Temperature Temperature Source Pulse Rate 65 65 Pulse Rate [Left] Pulse Rate from SpO2 Sensor 64 65 Respiratory Rate 22 23 Blood Pressure 172/81 H 172/81 H Blood Pressure [Left Arm] Blood Pressure Mean 135 111 Blood Pressure Mean [Left Arm] Pulse Oximetry 94 97 Oxygen Delivery Method Oxygen Flow Rate Sepsis Recent Fever Within 48 Hours Sepsis New/Unexplained Change in Mental Status Sepsis Action Taken by Nursing 01/29/25 20:33 01/29/25 20:42 01/29/25 20:51 Temperature Temperature Source Pulse Rate 80 70 68 Pulse Rate [Left] Pulse Rate from SpO2 Sensor 80 69 68 Respiratory Rate 22 19 20 Blood Pressure 183/91 H Blood Pressure [Left Arm] Blood Pressure Mean 121 Blood Pressure Mean [Left Arm] Pulse Oximetry 95 95 94 Oxygen Delivery Method Oxygen Flow Rate Sepsis Recent Fever Within 48 Hours Sepsis New/Unexplained Change in Mental Status Sepsis Action Taken by Nursing 01/29/25 20:54 01/29/25 21:00 01/29/25 21:00 Temperature Temperature Source Pulse Rate 74 Pulse Rate [Left] Pulse Rate from SpO2 Sensor 67 Respiratory Rate 22 Blood Pressure 183/87 H 183/87 H Blood Pressure [Left Arm] Blood Pressure Mean 134 134 Blood Pressure Mean [Left Arm] Pulse Oximetry 94 Oxygen Delivery Method Oxygen Flow Rate Sepsis Recent Fever Within 48 Hours Sepsis New/Unexplained Change in Mental Status Sepsis Action Taken by Nursing 01/29/25 21:06 01/29/25 21:15 01/29/25 21:21 Temperature Temperature Source Pulse Rate 74 72 71 Pulse Rate [Left] Pulse Rate from SpO2 Sensor 68 72 68 Respiratory Rate 18 21 27 H Blood Pressure Blood Pressure [Left Arm] Blood Pressure Mean Blood Pressure Mean [Left Arm] Pulse Oximetry 96 94 95 Oxygen Delivery Method Oxygen Flow Rate Sepsis Recent Fever Within 48 Hours Sepsis New/Unexplained Change in Mental Status Sepsis Action Taken by Nursing 01/29/25 21:36 01/29/25 21:42 01/29/25 21:47 Temperature Temperature Source Pulse Rate 73 66 Pulse Rate [Left] Pulse Rate from SpO2 Sensor 74 65 Respiratory Rate 20 18 Blood Pressure 181/93 H Blood Pressure [Left Arm] Blood Pressure Mean 127 Blood Pressure Mean [Left Arm] Pulse Oximetry 96 97 Oxygen Delivery Method Oxygen Flow Rate Sepsis Recent Fever Within 48 Hours Sepsis New/Unexplained Change in Mental Status Sepsis Action Taken by Nursing 01/29/25 21:47 01/29/25 22:01 01/29/25 22:01 Temperature Temperature Source Pulse Rate Pulse Rate [Left] Pulse Rate from SpO2 Sensor Respiratory Rate Blood Pressure 181/93 H 182/86 H 182/86 H Blood Pressure [Left Arm] Blood Pressure Mean 127 122 122 Blood Pressure Mean [Left Arm] Pulse Oximetry Oxygen Delivery Method Oxygen Flow Rate Sepsis Recent Fever Within 48 Hours Sepsis New/Unexplained Change in Mental Status Sepsis Action Taken by Nursing 01/29/25 22:01 01/29/25 22:15 01/29/25 22:21 Temperature Temperature Source Pulse Rate 87 64 67 Pulse Rate [Left] Pulse Rate from SpO2 Sensor 64 67 Respiratory Rate 16 22 17 Blood Pressure 182/86 H Blood Pressure [Left Arm] Blood Pressure Mean 122 Blood Pressure Mean [Left Arm] Pulse Oximetry 94 98 97 Oxygen Delivery Method Oxygen Flow Rate Sepsis Recent Fever Within 48 Hours Sepsis New/Unexplained Change in Mental Status Sepsis Action Taken by Nursing 01/29/25 22:27 01/29/25 22:31 01/29/25 22:31 Temperature Temperature Source Pulse Rate 96 H Pulse Rate [Left] Pulse Rate from SpO2 Sensor 68 Respiratory Rate 21 Blood Pressure 212/97 H 212/97 H Blood Pressure [Left Arm] Blood Pressure Mean 108 108 Blood Pressure Mean [Left Arm] Pulse Oximetry 98 Oxygen Delivery Method Oxygen Flow Rate Sepsis Recent Fever Within 48 Hours Sepsis New/Unexplained Change in Mental Status Sepsis Action Taken by Nursing 01/29/25 22:33 01/29/25 22:42 01/29/25 22:45 Temperature Temperature Source Pulse Rate 70 72 Pulse Rate [Left] Pulse Rate from SpO2 Sensor 70 71 Respiratory Rate 18 21 Blood Pressure 203/88 H Blood Pressure [Left Arm] Blood Pressure Mean 131 Blood Pressure Mean [Left Arm] Pulse Oximetry 98 96 Oxygen Delivery Method Oxygen Flow Rate Sepsis Recent Fever Within 48 Hours Sepsis New/Unexplained Change in Mental Status Sepsis Action Taken by Nursing 01/29/25 22:45 01/29/25 22:45 01/29/25 22:51 Temperature Temperature Source Pulse Rate 65 Pulse Rate [Left] Pulse Rate from SpO2 Sensor 65 Respiratory Rate 16 Blood Pressure 203/88 H 203/88 H Blood Pressure [Left Arm] Blood Pressure Mean 131 131 Blood Pressure Mean [Left Arm] Pulse Oximetry 98 Oxygen Delivery Method Oxygen Flow Rate Sepsis Recent Fever Within 48 Hours Sepsis New/Unexplained Change in Mental Status Sepsis Action Taken by Nursing 01/29/25 23:01 01/29/25 23:01 Temperature Temperature Source Pulse Rate 65 Pulse Rate [Left] Pulse Rate from SpO2 Sensor Respiratory Rate Blood Pressure 157/105 H 157/105 H Blood Pressure [Left Arm] Blood Pressure Mean 109 109 Blood Pressure Mean [Left Arm] Pulse Oximetry Oxygen Delivery Method Oxygen Flow Rate Sepsis Recent Fever Within 48 Hours Sepsis New/Unexplained Change in Mental Status Sepsis Action Taken by [facility] Medications Current Medication List: was personally reviewed by me Laboratory Data Attestation: I reviewed the patient's lab results. 01/29/25 18:40 01/29/25 18:40 Lab Results 01/29/25 01/29/25 Range/Units 18:40 18:45 WBC 6.10 (4.8-10.8) K/ul RBC 3.66 L (4.20-5.40) M/uL Hgb 11.8 L (12.0-16.0) g/dl POC Hgb 12.2 (12.0-16.0) g/dl Hct 34.4 L (37.0-47.0) % POC Hct 36 L (37-47) % MCV 94.0 (80.0-100.0) fL MCH 32.2 (25.0-34.0) pg MCHC 34.3 (32.0-36.0) g/dL RDW Std Deviation 54.3 H (36.4-46.3) fL RDW Coeff of Ameena 15.7 H (11.5-14.5) % Plt Count 494 H (130-400) K/uL MPV 9.7 (9.4-12.4) fL Immature Gran % (Auto) 0.2 % Neut % (Auto) 62.8 % Lymph % (Auto) 25.7 % [place] % (Auto) 9.5 % Eos % (Auto) 1.1 % Baso % (Auto) 0.7 % Neut # (Auto) 3.83 (1.40-6.50) K/uL Lymph # (Auto) 1.57 (1.20-3.40) K/uL [place] # (Auto) 0.58 (0.11-0.59) K/uL Eos # (Auto) 0.07 (0.00-0.50) K/uL Baso # (Auto) 0.04 (0.00-0.20) K/uL Immature Gran # (Auto) 0.01 (0.01-0.20) K/uL PT 61.1 H (9.0-12.0) Seconds INR 6.7 H* (0.9-1.1) APTT 45 H (21-31) Seconds PTT Ratio 1.7 POC Sodium 139 (135-144) mmol/L Sodium 139 (136-145) mmol/L POC Potassium 2.7 L (3.3-5.0) mmol/L Potassium 2.9 L (3.5-5.1) mmol/L POC Chloride 100 L (101-112) mmol/L Chloride 103 (98-107) mmol/L Carbon Dioxide 27 (21-32) mmol/L POC Total CO2 24 (24-31) mmol/L Anion Gap 9 (3-11) POC Anion Gap 19.0 (16-25) mmol/L POC BUN 6 L (7-18) mg/dl BUN 8 (6-23) mg/dl Creatinine 0.93 (0.6-1.2) mg/dl POC Creatinine 2.4 H (0.6-1.3) mg/dl Est Cr Clr Drug Dosing Not Reportable eGFR 63.70 BUN/Creatinine Ratio 8.6 L (10-20) Glucose 107 H (70-99(Fasting)) mg/dl POC Glucose (other) 115 H (70-99) mg/dl Lactate 2.5 H* (0.4-2.0) mmol/L Calcium 8.9 (8.6-10.3) mg/dl POC Ioniz Calcium Armando 1.15 (1.12-1.32) mmol/l Total Bilirubin 1.3 H (0.2-1.0) mg/dl AST 25 (13-39) U/L ALT 12 (7-52) U/L Alkaline Phosphatase 58 (34-104) U/L Troponin I High Sens 15.6 H (0-14) pg/ml Total Protein 6.4 (6.0-8.3) gm/dl Albumin 3.6 (3.4-5.0) gm/dl Globulin 2.8 (2.5-4.0) gm/dl Albumin/Globulin Ratio 1.3 (0.9-2) Lipase 13 (11-82) U/L Administered Medications Discontinued Medications Sodium Chloride (Nss) 500 mls @ 999 mls/hr IV .Q31M STA Stop: 01/29/25 19:02 Last Infusion: 01/29/25 21:58 Dose: Infused Documented By: Admin: 01/29/25 18:53 Dose: 999 mls/hr Documented By: AGUILAR Sodium Chloride (Nss) 500 mls @ 999 mls/hr IV .Q31M ONE Stop: 01/29/25 19:34 Last Infusion: 01/29/25 21:57 Dose: Infused Documented By: Admin: 01/29/25 19:08 Dose: 999 mls/hr Documented By: AGUILAR Potassium Chloride (K Madi / Wtr) 10 meq in 100 mls @ 100 mls/hr IV ONE ONE Stop: 01/29/25 20:17 Last Infusion: 01/29/25 21:57 Dose: Infused Documented By: Admin: 01/29/25 19:22 Dose: 100 mls/hr Documented By: AGUILAR Potassium Chloride (K Madi / Wtr) 10 meq in 100 mls @ 100 mls/hr IV ONE ONE Stop: 01/29/25 20:17 Last Infusion: 01/29/25 21:57 Dose: Infused Documented By: Admin: 01/29/25 19:22 Dose: 100 mls/hr Documented By: AGUILAR Ioversol (Optiray 320 125ml) 115 ml IV ONCE ONE Stop: 01/29/25 20:26 Last Admin: 01/29/25 20:25 Dose: 115 ml Documented By: TRACY Ondansetron HCl (Ondansetron Inj 2 Mg/Ml 2 Ml Vial) 4 mg IV NOW STA Stop: 01/29/25 18:33 Last Admin: 01/29/25 18:53 Dose: 4 mg Documented By: AGUILAR Imaging Data Attestation: I personally reviewed and interpreted this imaging study as follows: My Impression: 1 view chest x-ray was obtained in the emergency department. My interpretation is no free air or definite infiltrate, final report below. Radiologist's Impression: Chest X-Ray 01/29/25 18:32 EXAM: Portable AP chest radiograph TECHNIQUE: AP portable radiograph of the chest was obtained. INDICATION: Shortness of breath Comparison: Chest radiograph June 27, 2023 FINDINGS: LINES and TUBES: None CARDIOVASCULAR: Cardiac silhouette is stably and mildly enlarged in size. LUNGS/PLEURA: No focal consolidation identified. Chronic interstitial lung changes. No significant pleural fluid. No discernible pneumothorax. OSSEOUS/OTHER: No displaced acute osseous process identified. Chronic appearing deformities of the right shoulder. IMPRESSION: No radiographic evidence of acute cardiopulmonary process with no significant change from prior radiograph dated June 27, 2023. Stably and mildly enlarged cardiac silhouette. Electronically signed by Kael Shelley 01-29-2025 7:48 PM Abdomen/Pelvis CTA 01/29/25 19:22 Exam(s): CTA ABDOMEN + PELVIS With Contrast IV Amt: 115 ml optiray 320 EXAM: CT Angiography Abdomen and Pelvis With Intravenous Contrast CLINICAL HISTORY: Reason for exam: upper pain. TECHNIQUE: Axial computed tomographic angiography images of the abdomen and pelvis with intravenous contrast. Automated exposure control was utilized for the study. A dose lowering technique was utilized adhering to the principles of ALARA. MIP reconstructed images were created and reviewed. CONTRAST: Patient received 115 ml optiray 320 of IV contrast COMPARISON: 01/22/2022 FINDINGS: VASCULATURE: Aorta: No acute findings. No abdominal aortic aneurysm. No dissection. Celiac trunk and mesenteric arteries: No acute findings. No occlusion or significant stenosis. Renal arteries: No acute findings. No occlusion or significant stenosis. Iliac arteries: No acute findings. No occlusion or significant stenosis. Lung bases: Unremarkable. No mass. No consolidation. Mediastinum: Large esophageal hiatal hernia. ABDOMEN: Liver: Unremarkable. No mass. Gallbladder and bile ducts: Unremarkable. No calcified stones. No ductal dilation. Pancreas: Unremarkable. No ductal dilation. No mass. Spleen: Unremarkable. No splenomegaly. Adrenals: Unremarkable. No mass. Kidneys and ureters: Unremarkable. No hydronephrosis. No solid mass. Stomach and bowel: Unremarkable. No obstruction. No mucosal thickening. PELVIS: Appendix: No findings to suggest acute appendicitis. Bladder: Unremarkable. No mass. Reproductive: Unremarkable as visualized. ABDOMEN and PELVIS: Intraperitoneal space: Unremarkable. No significant fluid collection. No free air. Bones/joints: No acute fracture. No dislocation. Soft tissues: Unremarkable. Lymph nodes: Unremarkable. No enlarged lymph nodes. IMPRESSION: Large esophageal hiatal hernia. Electronically signed by: Vish Almendarez MD 01/29/25 22:43 PM Chest CTA 01/29/25 19:22 Exam(s): CTA CHEST IV Amt: 115 ml optiray 320 EXAM: CT Angiography Chest With Intravenous Contrast CLINICAL HISTORY: Reason for exam: PE. TECHNIQUE: Axial computed tomographic angiography images of the chest with intravenous contrast. CTDI is 19 mGy and DLP is 948.77 mGy-cm. Automated exposure control was utilized for the study. A dose lowering technique was utilized adhering to the principles of ALARA. MIP reconstructed images were created and reviewed. COMPARISON: No relevant prior studies available. FINDINGS: Pulmonary arteries: Unremarkable. No pulmonary embolism. Aorta: No acute findings. No thoracic aortic aneurysm. Lungs: Subtle right upper lobe infiltrate. No mass. Pleural space: Unremarkable. No significant effusion. No pneumothorax. Heart: Unremarkable. No cardiomegaly. No significant pericardial effusion. No evidence of RV dysfunction. Mediastinum: Large esophageal hiatal hernia. Bones/joints: No acute fracture. No dislocation. Soft tissues: Unremarkable. Lymph nodes: Unremarkable. No enlarged lymph nodes. IMPRESSION: Large esophageal hiatal hernia. No pulmonary embolus Subtle right upper lobe infiltrate Electronically signed by: Vish Almendarez MD 01/29/25 22:30 PM Discharge Plan Visit Data Chief Complaint: Chest Pain Stated Complaint: CHEST PAIN, ABD PAIN ED Provider: Robby Valero Discharge Problem: Epigastric abdominal pain, Elevated troponin I level, Hypokalemia Patient Disposition: Being Evaluated by Hospitalist Condition: Fair Forms Stand Alone Forms: [facility] [place] Prescriptions Prescriptions: No Action polyethylene glycol 3350 [Miralax] 17 gram Powder In Packet 17 g PO HS cyanocobalamin (vitamin B-12) [Vitamin B-12] 1,000 mcg Tablet 1,000 mcg PO HS (DME) Breathe Right Strip warfarin [Jantoven] 5 mg Tablet 5 mg PO 2XWK Patient Comments: can not remember for sure what dosing is. believes this is correct. may need further review. Rx Instructions: SATURDAY & SATURDAY EVENINGS nitroglycerin 0.4 mg Tablet, Sublingual 0.4 mg sublingual DIRECTED PRN (Reason: Chest Pain) hydroxyurea 500 mg capsule 500 mg PO DAILY acetaminophen [Tylenol Extra Strength] 500 mg Tablet 1,000 mg PO BID ondansetron 4 mg tablet,disintegrating 4 mg PO Q6H PRN (Reason: nausea and vomiting) Qty: 14 0RF aspirin 81 mg Tablet,Delayed Release (Dr/Ec) 81 mg PO QAM alum-mag hydroxide-simeth [Mylanta] 200-200-20 mg/5 mL Suspension 15 ml PO Q6H PRN (Reason: HEARTBURN/INDIGESTION) folic acid 800 mcg Tablet 0.8 mg PO HS duloxetine 30 mg capsule,delayed release(DR/EC) 30 mg PO QAM famotidine 20 mg tablet 40 mg PO HS atorvastatin 80 mg tablet 80 mg PO QAM hydrocodone-acetaminophen 5-325 mg tablet 1 tab PO Q8H PRN (Reason: Pain) Rx Instructions: PER PT'S FAMILY "TAKES 1/2 TAB AT HS". omeprazole 40 mg capsule,delayed release(DR/EC) 40 mg PO QAM nystatin 100,000 unit/gram Powder 1 applic TOPICAL BID PRN (Reason: SKIN FOLDS) losartan 100 mg tablet 100 mg PO QAM simethicone 80 mg Tablet,Chewable 80 mg PO Q6H PRN (Reason: GAS DISCOMFORT) cholecalciferol (vitamin D3) [Vitamin D3] 25 mcg (1,000 unit) Capsule 25 mcg PO HS Vicks Sinex Daytime 5-325 mg Capsule 1 cap PO DIRECTED PRN (Reason: Cold Symptoms) Prolia 60 mg/mL Syringe 60 mg SUBCUT .[id number] sucralfate [Carafate] 1 gram Tablet 1 g PO ACHS Rx Instructions: PER PT'S FAMILY, "TAKES 2-3 X WK". warfarin 5 mg Tablet 2.5 mg PO 5XWK Rx Instructions: SUN, TUES, WED, THURS, & SAT EVENINGS Referrals Referrals: Madeline Lopez MD [Primary Care Provider] -
[2025-01-29 18:53] LABS: Hematocrit (blood only) 34.4 % (37.0-47.0); Hemoglobin 11.8 g/dl (12.0-16.0); Immature Granulocytes # (auto) 0.01 K/uL (0.01-0.20); Immature Granulocytes % (auto) 0.2 %; Mean Corpuscular Hemoglobin 32.2 pg (25.0-34.0); Mean Corpuscular Volume 94.0 fL (80.0-100.0); Platelet Count 494 K/uL (130-400); RDW Standard Deviation 54.3 fL (36.4-46.3); Red Blood Count 3.66 M/uL (4.20-5.40); White Blood Count 6.10 K/ul (4.8-10.8)
[2025-01-29] MEDS: ONDANSETRON INJ 2 MG/ML 2 ML VIAL IV STA (18:53)
[2025-01-29] MEDS: SODIUM CHLORIDE 0.9% 500 ML IV STA (18:53)
[2025-01-29] MEDS: SODIUM CHLORIDE 0.9% 500 ML IV ONE (19:08)
[2025-01-29 19:14] LABS: Alanine Aminotransferase 12 U/L (7-52); Albumin Globulin Ratio 1.3 (0.9-2); Alkaline Phosphatase 58 U/L (34-104); Anion Gap 9 (3-11); Bilirubin,Total 1.3 mg/dl (0.2-1.0); Blood Urea Nitrogen 8 mg/dl (6-23); Calcium 8.9 mg/dl (8.6-10.3); Carbon Dioxide 27 mmol/L (21-32); Chloride 103 mmol/L (98-107); Globulin 2.8 gm/dl (2.5-4.0); Glucose 107 mg/dl (70-99(Fasting)); Lipase 13 U/L (11-82); Potassium 2.9 mmol/L (3.5-5.1); Sodium 139 mmol/L (136-145); Total Protein 6.4 gm/dl (6.0-8.3)
[2025-01-29] MEDS: POTASSIUM CHLORIDE / WTR 10 MEQ/100 ML PLCT IV ONE ×2 (19:22)
[2025-01-29 19:44] LABS: Partial Thromboplastin Time 45 Seconds (21-31); Prothrombin Time 61.1 Seconds (9.0-12.0)
--- NOTE | 2025-01-29 19:48 | XRay Report ---
EXAM: Portable AP chest radiograph TECHNIQUE: AP portable radiograph of the chest was obtained. INDICATION: Shortness of breath Comparison: Chest radiograph June 27, 2023 FINDINGS: LINES and TUBES: None CARDIOVASCULAR: Cardiac silhouette is stably and mildly enlarged in size. LUNGS/PLEURA: No focal consolidation identified. Chronic interstitial lung changes. No significant pleural fluid. No discernible pneumothorax. OSSEOUS/OTHER: No displaced acute osseous process identified. Chronic appearing deformities of the right shoulder. IMPRESSION: No radiographic evidence of acute cardiopulmonary process with no significant change from prior radiograph dated June 27, 2023. Stably and mildly enlarged cardiac silhouette. Electronically signed by Kael Shelley 01-29-2025 7:48 PM
[2025-01-29 19:56] LABS: INR 6.7 (0.9-1.1)
[2025-01-29] MEDS: OPTIRAY 320 125ml IV ONE (20:25)
--- NOTE | 2025-01-29 22:31 | CT Scan Report ---
Exam(s): CTA CHEST IV Amt: 115 ml optiray 320 EXAM: CT Angiography Chest With Intravenous Contrast CLINICAL HISTORY: Reason for exam: PE. TECHNIQUE: Axial computed tomographic angiography images of the chest with intravenous contrast. CTDI is 19 mGy and DLP is 948.77 mGy-cm. Automated exposure control was utilized for the study. A dose lowering technique was utilized adhering to the principles of ALARA. MIP reconstructed images were created and reviewed. COMPARISON: No relevant prior studies available. FINDINGS: Pulmonary arteries: Unremarkable. No pulmonary embolism. Aorta: No acute findings. No thoracic aortic aneurysm. Lungs: Subtle right upper lobe infiltrate. No mass. Pleural space: Unremarkable. No significant effusion. No pneumothorax. Heart: Unremarkable. No cardiomegaly. No significant pericardial effusion. No evidence of RV dysfunction. Mediastinum: Large esophageal hiatal hernia. Bones/joints: No acute fracture. No dislocation. Soft tissues: Unremarkable. Lymph nodes: Unremarkable. No enlarged lymph nodes. IMPRESSION: Large esophageal hiatal hernia. No pulmonary embolus Subtle right upper lobe infiltrate Electronically signed by: Vish Almendarez MD 01/29/25 22:30 PM
--- NOTE | 2025-01-29 22:44 | CT Scan Report ---
Exam(s): CTA ABDOMEN + PELVIS With Contrast IV Amt: 115 ml optiray 320 EXAM: CT Angiography Abdomen and Pelvis With Intravenous Contrast CLINICAL HISTORY: Reason for exam: upper pain. TECHNIQUE: Axial computed tomographic angiography images of the abdomen and pelvis with intravenous contrast. Automated exposure control was utilized for the study. A dose lowering technique was utilized adhering to the principles of ALARA. MIP reconstructed images were created and reviewed. CONTRAST: Patient received 115 ml optiray 320 of IV contrast COMPARISON: 01/22/2022 FINDINGS: VASCULATURE: Aorta: No acute findings. No abdominal aortic aneurysm. No dissection. Celiac trunk and mesenteric arteries: No acute findings. No occlusion or significant stenosis. Renal arteries: No acute findings. No occlusion or significant stenosis. Iliac arteries: No acute findings. No occlusion or significant stenosis. Lung bases: Unremarkable. No mass. No consolidation. Mediastinum: Large esophageal hiatal hernia. ABDOMEN: Liver: Unremarkable. No mass. Gallbladder and bile ducts: Unremarkable. No calcified stones. No ductal dilation. Pancreas: Unremarkable. No ductal dilation. No mass. Spleen: Unremarkable. No splenomegaly. Adrenals: Unremarkable. No mass. Kidneys and ureters: Unremarkable. No hydronephrosis. No solid mass. Stomach and bowel: Unremarkable. No obstruction. No mucosal thickening. PELVIS: Appendix: No findings to suggest acute appendicitis. Bladder: Unremarkable. No mass. Reproductive: Unremarkable as visualized. ABDOMEN and PELVIS: Intraperitoneal space: Unremarkable. No significant fluid collection. No free air. Bones/joints: No acute fracture. No dislocation. Soft tissues: Unremarkable. Lymph nodes: Unremarkable. No enlarged lymph nodes. IMPRESSION: Large esophageal hiatal hernia. Electronically signed by: Vish Almendarez MD 01/29/25 22:43 PM
--- NOTE | 2025-01-29 23:51 | History & Physical Report ---
Date of Service January 29, 2025 Assessment & Plan (1) Asymptomatic hypertensive urgency: Plan: Assessment and plan below following discussion of case with ED provider and reviewing patient history/pertinent normal/abnormal diagnostic test results. Hypertensive urgency Secondary to abdominal pain, uncontrolled GERD, large esophageal hiatal hernia on imaging Rule out UTI Troponin elevation secondary to above Hypokalemia secondary to decreased p.o. 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, INR supratherapeutic hx RV systolic dysfunction as per records (EF 55%, TTE 2020) mild TR nonocclusive CAD as per records hyperlipidemia, on statin Rx JERMAINE (CPAP intolerance), pulmonary hypertension prediabetes, hemoglobin A1c of 5.4 from 2022 essential thrombocythemia/JAK2 mutation on Hydrea Rx dementia, mentation at baseline OBS Admit to med/tele given uncontrolled BP Analgesia Hydralazine IV 1 dose now Add amlodipine to current losartan Rx Follow troponin, TTE for progression Replace electrolytes Follow H&H, transfuse PRBC if hemoglobin less than 8 and or for symptomatic anemia Appropriate to hold Coumadin for now given supratherapeutic INR, oral vitamin K 1 dose Double PPI dose, continue Pepcid Recommend PCP contact [facility] specialist regarding hiatal hernia to discuss management options (TIF procedure versus Surgery consultation) Check UA DVT prophylaxis. Coumadin INR between 2 and 3 Full code Patient partner requesting updates providers. Mr. Fransico Cooley, contact numbers [phone]. Text document was generated using [employer] voice recognition software. It may contain grammatical or spelling errors. Kindly contact undersigned for clarification of any documentation item in question. History of Present Illness Chief Complaint: Abdominal pain Primary Care Provider: Madeline Lopez MD History obtained from patient, family, and records. Patient is a fair historian. Medical history significant for RV systolic dysfunction as per records (EF 55%, TTE 2020), mild TR, nonocclusive CAD as per records, hypertension, hyperlipidemia, JERMAINE (CPAP intolerance), pulmonary hypertension, recurrent PE on Coumadin, prediabetes, GERD, hiatal hernia, essential thrombocythemia/JAK2 m utation on Hydrea Rx, dementia, anxiety/mood disorder. Last confinement 2018 under [facility] for decompression surgery for lumbar spine stenosis. Patient with worsening epigastric discomfort radiating to the chest associated with reflux, indigestion and belching symptoms for about 6 months now. Pain somewhat worse on eating. Poor appetite, unquantified weight loss. Symptoms attributed by GI to GERD on outpatient visit 2 months ago Pepcid added to omeprazole. Outpatient endoscopy recommended and done by [facility] 2 weeks ago. EGD visualized gastroesophageal flap valve and classified as Hill grade 4 (no fold, wide open lumen, hiatal hernia present). Colonoscopy showed diverticulosis and polyps. Patient had worsening epigastric discomfort over the last few days going to the lower chest. Some nausea, no emesis. No cough, no SOB, no headache symptoms. No black or bloody stools. Patient brought to ER for evaluation by family. Highest SBP of 210s documented at the ER. 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 Allergies Allergy/AdvReac Type Severity Reaction Status Date / Time scallops Allergy Severe throat Verified 01/29/25 20:10 swelling Penicillins Allergy Intermediate RASH/NAUSEA Verified 01/29/25 20:10 Sulfa (Sulfonamide Allergy Intermediate RASH/NAUSEA Verified 01/29/25 20:10 Antibiotics) tramadol AdvReac Severe SEVERE Verified 01/29/25 20:10 NAUSEA lisinopril AdvReac Intermediate Cough Verified 01/29/25 20:10 lubiprostone [From Amitiza] AdvReac Intermediate Hypotension Verified 01/29/25 20:10 Home Medications Medication Instructions Recorded Confirmed Type cyanocobalamin (vitamin B-12) 1,000 mcg PO HS 08/08/18 01/29/25 History 1,000 mcg tablet (Vitamin B-12) nasal dilators (Breathe Right 08/08/18 01/29/25 History strips) nitroglycerin 0.4 mg sublingual 0.4 mg sublingual DIRECTED PRN 08/08/18 01/29/25 History tablet Chest Pain polyethylene glycol 3350 17 gram 17 g PO HS 08/08/18 01/29/25 History oral powder packet (Miralax) warfarin 5 mg tablet (Jantoven) 5 mg PO 2XWK 08/08/18 01/29/25 History acetaminophen 500 mg tablet 1,000 mg PO BID 01/25/21 01/29/25 History (Tylenol Extra Strength) hydroxyurea 500 mg capsule 500 mg PO DAILY 01/25/21 01/29/25 History ondansetron 4 mg disintegrating 4 mg PO Q6H PRN nausea and 01/25/21 01/29/25 Rx tablet vomiting #14 tabs aluminum-mag hydroxide-simethicone 15 ml PO Q6H PRN 04/26/22 01/29/25 History 200 mg-200 mg-20 mg/5 mL oral susp HEARTBURN/INDIGESTION aspirin 81 mg tablet,delayed 81 mg PO QAM 04/26/22 01/29/25 History release duloxetine 30 mg capsule,delayed 30 mg PO QAM 04/26/22 01/29/25 History release famotidine 20 mg tablet 40 mg PO HS HEARTBURN/INDIGESTION 04/26/22 01/29/25 Hist ory folic acid 800 mcg tablet 0.8 mg PO HS 04/26/22 01/29/25 History atorvastatin 80 mg tablet 80 mg PO QAM 01/29/25 01/29/25 History cholecalciferol (vitamin D3) 25 25 mcg PO HS 01/29/25 01/29/25 History mcg (1,000 unit) capsule (Vitamin D3) denosumab 60 mg/mL subcutaneous 60 mg subcut .[id number] 01/29/25 01/29/25 History syringe (Prolia) hydrocodone 5 mg-acetaminophen 325 1 tab PO Q8H PRN Pain 01/29/25 01/29/25 History mg tablet losartan 100 mg tablet 100 mg PO QAM 01/29/25 01/29/25 History nystatin 100,000 unit/gram topical 1 applic topical BID PRN SKIN FOLDS 01/29/25 01/29/25 History powder omeprazole 40 mg capsule,delayed 40 mg PO QAM 01/29/25 01/29/25 History release phenylephrine 5 mg-acetaminophen 1 cap PO DIRECTED PRN Cold 01/29/25 01/29/25 History 325 mg capsule (Vicks Sinex Symptoms Daytime) simethicone 80 mg chewable tablet 80 mg PO Q6H PRN GAS DISCOMFORT 01/29/25 01/29/25 History sucralfate 1 gram tablet (Carafate) 1 g PO ACHS 01/29/25 01/29/25 History warfarin 5 mg tablet 2.5 mg PO 5XWK 01/29/25 01/29/25 History Past Med/Surg History Problem List (Updated 01/30/25 @ 08:34 by Jack Duran MD) Asymptomatic hypertensive urgency Hypokalemia (Acute) Elevated troponin I level (Acute) Epigastric abdominal pain (Acute) Nausea (Acute) Acute blood loss anemia (Acute) H/O lumbosacral spine surgery (Acute) Hypertension (Chronic) Hyperlipidemia (Chronic) History of pulmonary embolism (Chronic) Last in 2013, on coumadin Sleep apnea (Chronic) 02 HS Acid reflux (Chronic) Osteoarthritis (Chronic) Essential thrombocytosis (Chronic) Medical History Stress incontinence Hiatal hernia Poor short term memory Learning disability 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 Surgical History History of cardiac cath YRS AGO, [place], PT CAN'T REMEMBER REASON...DENIES STENTS History of tubal ligation History of shoulder surgery R & L - SEPERATE PROCEDURES FOR Family History Other Family history of stroke Heart disease Social History Smoking Status: Never smoker Do You Dip or Chew Tobacco: No; Hx Alcohol Use: No Hx Substance Use: No Preferred Language: Vietnamese Communication Ability: Effective Communication Ability Comment: LEARNING DISABILITY/CAN'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 Rod Filler Required: No Beliefs That Will Affect Care: None Current Living Situation: Spouse Current Living Situation Comment: with Other Information That Helps Us Care for You: No Feels Safe at Home: Yes Safety Concerns: Feels Safe At This Time Assistive Devices: Denture - Upper, Glasses and Walker Review of Systems Review of Systems: As per HPI, all other systems reviewed and negative Physical Exam Physical Exam: GENERAL: Oriented to place, slightly anxious and uncomfortable, no respiratory distress SKIN: Normal color, warm HEENT: [place] palpebral conjunctivae, no ptosis, dry buccal mucosa NECK : Supple, no tenderness CHEST : CTA, no tenderness HEART : RRR, no obvious murmurs ABDOMEN: Some distention, epigastric tenderness EXTREMITIES : Minimal LE swelling, no LE tenderness, palpable pulses, no other conspicuous deformities noted NEUROLOGIC : Demented, no facial asymmetry, no other gross focality Results & Data Results & Data Vital Signs (Past 12 Hours) Vital Signs Temp Pulse Pulse Resp BP BP Pulse Ox 01/29/25 23:01 65 157/105 H 01/29/25 23:01 157/105 H 01/29/25 22:51 65 16 98 01/29/25 22:45 203/88 H 01/29/25 22:45 203/88 H 01/29/25 22:45 203/88 H 01/29/25 22:42 72 21 96 01/29/25 22:33 70 18 98 01/29/25 22:31 212/97 H 01/29/25 22:31 212/97 H 01/29/25 22:27 96 H 21 98 01/29/25 22:21 67 17 97 01/29/25 22:15 64 22 98 01/29/25 22:01 87 16 182/86 H 94 01/29/25 22:01 182/86 H 01/29/25 22:01 182/86 H 01/29/25 21:47 181/93 H 01/29/25 21:47 181/93 H 01/29/25 21:42 66 18 97 01/29/25 21:36 73 20 96 01/29/25 21:21 71 27 H 95 01/29/25 21:15 72 21 94 01/29/25 21:06 74 18 96 01/29/25 21:00 183/87 H 01/29/25 21:00 183/87 H 01/29/25 20:54 74 22 94 01/29/25 20:51 68 20 94 01/29/25 20:42 70 19 95 01/29/25 20:33 80 22 183/91 H 95 01/29/25 20:12 65 23 172/81 H 97 01/29/25 20:00 65 22 94 01/29/25 20:00 172/81 H 01/29/25 20:00 172/81 H 01/29/25 20:00 172/81 H 01/29/25 19:54 72 22 95 01/29/25 19:42 67 23 98 01/29/25 19:30 177/91 H 01/29/25 19:00 178/119 H 01/29/25 18:54 77 19 97 01/29/25 18:52 24 185/124 H 96 01/29/25 18:52 185/124 H 01/29/25 18:51 76 23 96 01/29/25 18:47 78 01/29/25 18:45 78 17 186/102 H 96 01/29/25 18:45 01/29/25 18:42 78 28 H 96 01/29/25 18:33 78 27 H 96 01/29/25 18:32 78 20 98 01/29/25 18:30 206/102 H 01/29/25 18:21 36.0 C L 89 17 170/97 H 96 O2 Del Method O2 Flow Rate 01/29/25 23:01 01/29/25 23:01 01/29/25 22:51 01/29/25 22:45 01/29/25 22:45 01/29/25 22:45 01/29/25 22:42 01/29/25 22:33 01/29/25 22:31 01/29/25 22:31 01/29/25 22:27 01/29/25 22:21 01/29/25 22:15 01/29/25 22:01 01/29/25 22:01 01/29/25 22:01 01/29/25 21:47 01/29/25 21:47 01/29/25 21:42 01/29/25 21:36 01/29/25 21:21 01/29/25 21:15 01/29/25 21:06 01/29/25 21:00 01/29/25 21:00 01/29/25 20:54 01/29/25 20:51 01/29/25 20:42 01/29/25 20:33 01/29/25 20:12 01/29/25 20:00 01/29/25 20:00 01/29/25 20:00 01/29/25 20:00 01/29/25 19:54 01/29/25 19:42 01/29/25 19:30 01/29/25 19:00 01/29/25 18:54 01/29/25 18:52 01/29/25 18:52 01/29/25 18:51 01/29/25 18:47 01/29/25 18:45 Room Air 01/29/25 18:45 Room Air 96 01/29/25 18:42 01/29/25 18:33 01/29/25 18:32 Room Air 01/29/25 18:30 01/29/25 18:21 Room Air Laboratory Results Laboratory Results WBC 6.10 K/ul (4.8-10.8) 01/29/25 18:40 RBC 3.66 M/uL (4.20-5.40) L 01/29/25 18:40 Hgb 11.8 g/dl (12.0-16.0) L 01/29/25 18:40 POC Hgb 12.2 g/dl (12.0-16.0) 01/29/25 18:45 Hct 34.4 % (37.0-47.0) L 01/29/25 18:40 POC Hct 36 % (37-47) L 01/29/25 18:45 MCV 94.0 fL (80.0-100.0) 01/29/25 18:40 MCH 32.2 pg (25.0-34.0) 01/29/25 18:40 MCHC 34.3 g/dL (32.0-36.0) 01/29/25 18:40 RDW Std Deviation 54.3 fL (36.4-46.3) H 01/29/25 18:40 RDW Coeff of Ameena 15.7 % (11.5-14.5) H 01/29/25 18:40 Plt Count 494 K/uL (130-400) H 01/29/25 18:40 MPV 9.7 fL (9.4-12.4) 01/29/25 18:40 Immature Gran % (Auto) 0.2 % 01/29/25 18:40 Neut % (Auto) 62.8 % 01/29/25 18:40 Lymph % (Auto) 25.7 % 01/29/25 18:40 [place] % (Auto) 9.5 % 01/29/25 18:40 Eos % (Auto) 1.1 % 01/29/25 18:40 Baso % (Auto) 0.7 % 01/29/25 18:40 Neut # (Auto) 3.83 K/uL (1.40-6.50) 01/29/25 18:40 Lymph # (Auto) 1.57 K/uL (1.20-3.40) 01/29/25 18:40 [place] # (Auto) 0.58 K/uL (0.11-0.59) 01/29/25 18:40 Eos # (Auto) 0.07 K/uL (0.00-0.50) 01/29/25 18:40 Baso # (Auto) 0.04 K/uL (0.00-0.20) 01/29/25 18:40 Immature Gran # (Auto) 0.01 K/uL (0.01-0.20) 01/29/25 18:40 PT 61.1 Seconds (9.0-12.0) H 01/29/25 18:40 INR 6.7 (0.9-1.1) H* 01/29/25 18:40 APTT 45 Seconds (21-31) H 01/29/25 18:40 PTT Ratio 1.7 01/29/25 18:40 POC Sodium 139 mmol/L (135-144) 01/29/25 18:45 Sodium 139 mmol/L (136-145) 01/29/25 18:40 POC Potassium 2.7 mmol/L (3.3-5.0) L 01/29/25 18:45 Potassium 2.9 mmol/L (3.5-5.1) L 01/29/25 18:40 POC Chloride 100 mmol/L (101-112) L 01/29/25 18:45 Chloride 103 mmol/L (98-107) 01/29/25 18:40 Carbon Dioxide 27 mmol/L (21-32) 01/29/25 18:40 POC Total CO2 24 mmol/L (24-31) 01/29/25 18:45 Anion Gap 9 (3-11) 01/29/25 18:40 POC Anion Gap 19.0 mmol/L (16-25) 01/29/25 18:45 POC BUN 6 mg/dl (7-18) L 01/29/25 18:45 BUN 8 mg/dl (6-23) 01/29/25 18:40 Creatinine 0.93 mg/dl (0.6-1.2) 01/29/25 18:40 POC Creatinine 2.4 mg/dl (0.6-1.3) H 01/29/25 18:45 Est Cr Clr Drug Dosing Not Reportable 01/29/25 18:40 eGFR 63.70 01/29/25 18:40 BUN/Creatinine Ratio 8.6 (10-20) L 01/29/25 18:40 Glucose 107 mg/dl (70-99(Fasting)) H 01/29/25 18:40 POC Glucose (other) 115 mg/dl (70-99) H 01/29/25 18:45 Lactate 2.5 mmol/L (0.4-2.0) H* 01/29/25 18:40 Calcium 8.9 mg/dl (8.6-10.3) 01/29/25 18:40 POC Ioniz Calcium Armando 1.15 mmol/l (1.12-1.32) 01/29/25 18:45 Total Bilirubin 1.3 mg/dl (0.2-1.0) H 01/29/25 18:40 AST 25 U/L (13-39) 01/29/25 18:40 ALT 12 U/L (7-52) 01/29/25 18:40 Alkaline Phosphatase 58 U/L (34-104) 01/29/25 18:40 Troponin I High Sens 15.6 pg/ml (0-14) H 01/29/25 18:40 Total Protein 6.4 gm/dl (6.0-8.3) 01/29/25 18:40 Albumin 3.6 gm/dl (3.4-5.0) 01/29/25 18:40 Globulin 2.8 gm/dl (2.5-4.0) 01/29/25 18:40 Albumin/Globulin Ratio 1.3 (0.9-2) 01/29/25 18:40 Lipase 13 U/L (11-82) 01/29/25 18:40 Impressions Chest X-Ray 01/29/25 18:32 EXAM: Portable AP chest radiograph TECHNIQUE: AP portable radiograph of the chest was obtained. INDICATION: Shortness of breath Comparison: Chest radiograph June 27, 2023 FINDINGS: LINES and TUBES: None CARDIOVASCULAR: Cardiac silhouette is stably and mildly enlarged in size. LUNGS/PLEURA: No focal consolidation identified. Chronic interstitial lung changes. No significant pleural fluid. No discernible pneumothorax. OSSEOUS/OTHER: No displaced acute osseous process identified. Chronic appearing deformities of the right shoulder. IMPRESSION: No radiographic evidence of acute cardiopulmonary process with no significant change from prior radiograph dated June 27, 2023. Stably and mildly enlarged cardiac silhouette. Electronically signed by Kael Shelley 01-29-2025 7:48 PM Abdomen/Pelvis CTA 01/29/25 19:22 Exam(s): CTA ABDOMEN + PELVIS With Contrast IV Amt: 115 ml optiray 320 EXAM: CT Angiography Abdomen and Pelvis With Intravenous Contrast CLINICAL HISTORY: Reason for exam: upper pain. TECHNIQUE: Axial computed tomographic angiography images of the abdomen and pelvis with intravenous contrast. Automated exposure control was utilized for the study. A dose lowering technique was utilized adhering to the principles of ALARA. MIP reconstructed images were created and reviewed. CONTRAST: Patient received 115 ml optiray 320 of IV contrast COMPARISON: 01/22/2022 FINDINGS: VASCULATURE: Aorta: No acute findings. No abdominal aortic aneurysm. No dissection. Celiac trunk and mesenteric arteries: No acute findings. No occlusion or significant stenosis. Renal arteries: No acute findings. No occlusion or significant stenosis. Iliac arteries: No acute findings. No occlusion or significant stenosis. Lung bases: Unremarkable. No mass. No consolidation. Mediastinum: Large esophageal hiatal hernia. ABDOMEN: Liver: Unremarkable. No mass. Gallbladder and bile ducts: Unremarkable. No calcified stones. No ductal dilation. Pancreas: Unremarkable. No ductal dilation. No mass. Spleen: Unremarkable. No splenomegaly. Adrenals: Unremarkable. No mass. Kidneys and ureters: Unremarkable. No hydronephrosis. No solid mass. Stomach and bowel: Unremarkable. No obstruction. No mucosal thickening. PELVIS: Appendix: No findings to suggest acute appendicitis. Bladder: Unremarkable. No mass. Reproductive: Unremarkable as visualized. ABDOMEN and PELVIS: Intraperitoneal space: Unremarkable. No significant fluid collection. No free air. Bones/joints: No acute fracture. No dislocation. Soft tissues: Unremarkable. Lymph nodes: Unremarkable. No enlarged lymph nodes. IMPRESSION: Large esophageal hiatal hernia. Electronically signed by: Vish Almendarez MD 01/29/25 22:43 PM Chest CTA 01/29/25 19:22 Exam(s): CTA CHEST IV Amt: 115 ml optiray 320 EXAM: CT Angiography Chest With Intravenous Contrast CLINICAL HISTORY: Reason for exam: PE. TECHNIQUE: Axial computed tomographic angiography images of the chest with intravenous contrast. CTDI is 19 mGy and DLP is 948.77 mGy-cm. Automated exposure control was utilized for the study. A dose lowering technique was utilized adhering to the principles of ALARA. MIP reconstructed images were created and reviewed. COMPARISON: No relevant prior studies available. FINDINGS: Pulmonary arteries: Unremarkable. No pulmonary embolism. Aorta: No acute findings. No thoracic aortic aneurysm. Lungs: Subtle right upper lobe infiltrate. No mass. Pleural space: Unremarkable. No significant effusion. No pneumothorax. Heart: Unremarkable. No cardiomegaly. No significant pericardial effusion. No evidence of RV dysfunction. Mediastinum: Large esophageal hiatal hernia. Bones/joints: No acute fracture. No dislocation. Soft tissues: Unremarkable. Lymph nodes: Unremarkable. No enlarged lymph nodes. IMPRESSION: Large esophageal hiatal hernia. No pulmonary embolus Subtle right upper lobe infiltrate Electronically signed by: Vish Almendarez MD 01/29/25 22:30 PM Diagnostic Findings EKG as per my interpretation :Rate 70, NSR, LAD, LAFB, LVH, T wave abnormalities inferior and septal leads
[2025-01-30] MEDS: LABETALOL HCL IV 5 MG/ML 20ML IV STA (00:12)
[2025-01-30] MEDS: POTASSIUM CHLORIDE CRTAB 20 MEQ TABCR PO STA (00:17)
[2025-01-30 00:28] LABS: Hematocrit (blood only) 31.5 % (37.0-47.0); Hemoglobin 10.4 g/dl (12.0-16.0)
[2025-01-30] MEDS ORDERED: SIMETHICONE 80 MG CHEW PO PRN (00:42)
[2025-01-30 00:47] LABS: Magnesium 1.7 mg/dl (1.7-2.4)
[2025-01-30] MEDS ORDERED: ACETAMINOPHEN 325 MG TAB PO PRN (00:47)
[2025-01-30] MEDS ORDERED: PROMETHAZINE 6.25 MG/50.25 ML BAG IV PRN (00:47)
[2025-01-30] MEDS: MAGNESIUM SULFATE / D5W 1 GM/100 ML BAG IV STA (01:30)
[2025-01-30] MEDS: PANTOprazole 40 MG/10 ML SYR IV STA (01:48)
[2025-01-30] MEDS: PHYTONADIONE 5 MG TAB PO STA (01:48)
[2025-01-30 05:03] LABS: Hematocrit (blood only) 31.3 % (37.0-47.0); Hemoglobin 10.3 g/dl (12.0-16.0); Immature Granulocytes # (auto) 0.03 K/uL (0.01-0.20); Immature Granulocytes % (auto) 0.4 %; Mean Corpuscular Hemoglobin 31.8 pg (25.0-34.0); Mean Corpuscular Volume 96.6 fL (80.0-100.0); Platelet Count 425 K/uL (130-400); RDW Standard Deviation 55.9 fL (36.4-46.3); Red Blood Count 3.24 M/uL (4.20-5.40); White Blood Count 8.13 K/ul (4.8-10.8)
[2025-01-30 05:20] LABS: Anion Gap 6.0 (3-11); Blood Urea Nitrogen 7.0 mg/dl (6-23); Calcium 8.2 mg/dl (8.6-10.3); Carbon Dioxide 26.0 mmol/L (21-32); Chloride 106.0 mmol/L (98-107); Creatinine Clr Calc Pharmacy 66.6 ml/min; Glucose 97.0 mg/dl (70-99(Fasting)); Potassium 3.1 mmol/L (3.5-5.1); Sodium 138.0 mmol/L (136-145)
[2025-01-30 05:42] LABS: INR 5.2 (0.9-1.1); Prothrombin Time 48.6 Seconds (9.0-12.0)
[2025-01-30 05:46] VITALS: RESP 18
[2025-01-30 07:36] VITALS: BP 165/81; TEMP 97.9; O2SAT 95
[2025-01-30] MEDS: POTASSIUM CHLORIDE 20 MEQ/15 ML UDC PO STA (08:02)
[2025-01-30] MEDS: SUCRALFATE 1 GM TAB PO SCH (08:04)
[2025-01-30] MEDS: ASPIRIN 81 MG ECTAB PO SCH (08:05)
[2025-01-30] MEDS: ATORVASTATIN 40 MG TAB PO SCH (08:05)
[2025-01-30] MEDS: FOLIC ACID 400 MCG TAB PO SCH (08:06)
[2025-01-30] MEDS: HYDROXYUREA 500 MG CAP PO SCH (08:06)
[2025-01-30] MEDS: LOSARTAN POTASSIUM 50 MG TAB PO SCH (08:06)
[2025-01-30] MEDS: ACETAMINOPHEN 500 MG TAB PO SCH (08:12)
[2025-01-30] MEDS ORDERED: SODIUM CHLORIDE 0.65% NA SOLN 45 ML (OCEAN) ONE (08:21)
--- NOTE | 2025-01-30 10:03 | Discharge Summary ---
Discharge Summary Date of Service January 30, 2025 Principal Dx & Hospital Course #1 = Principal Diagnosis (1) Large hiatal hernia: (2) Hypertension, uncontrolled: (3) Supratherapeutic INR: (4) Hypokalemia: (5) Demand ischemia of myocardium: (6) History of pulmonary embolism: (7) Current use of roasterman anticoagulation: Plan Patient 74-year-old female with known large hiatal hernia presented to the emergency room with abdominal and lower chest pain. This has been ongoing for a few weeks. Patient also is complaining of a lot of indigestion and belching. She did have upper endoscopy already performed. In the emergency room she was noted to be hypertensive. Also slight elevation in her troponin. She was referred for further evaluation. Patient was cared for in hospital. She was given PPI and Carafate. Amlodipine was started. Troponins were trended and did not have a significant delta. This was consistent with some demand ischemia due to her hypertension. By the following morning her blood pressure had significantly improved. Her abdominal/chest pain had essentially resolved and improved. On the day of discharge significant other was at the bedside. Explained both of them that her chest and abdominal discomfort is due to the fact that her stomach is up in her chest versus her abdominal cavity. There really is not enough room in her chest cavity for her stomach especially when she eats or drinks a lot the stomach will expand and even cause more pressure in her chest. We discussed smaller more frequent meals. We also discussed that drinking carbonated beverages would probably cause her more discomfort with the gaseous distention of the stomach. Recommended avoiding carbonated beverages. If she likes to drink soda would recommend that she drink it flat. Also we discussed avoiding acidic foods. She will continue on the amlodipine. And continue on a PPI 2 times daily. She will continue her other outpatient medications. Patient is on chronic warfarin therapy. INR is 5.1. No evidence of any blood loss. They are instructed to hold her warfarin until Saturday. She was instructed to recheck her INR on Saturday per usual process and resume dosing of her warfarin based on her INR result. Notes For Next Care Provider Follow INR and make appropriate adjustments in warfarin dosing Medication Changes From Visit Omeprazole twice daily Amlodipine daily Admission HPI Per Admitting Provider History obtained from patient, family, and records. Patient is a fair historian. Medical history significant for RV systolic dysfunction as per records (EF 55%, TTE 2020), mild TR, nonocclusive CAD as per records, hypertension, hyperlipidemia, JERMAINE (CPAP intolerance), pulmonary hypertension, recurrent PE on Coumadin, prediabetes, GERD, hiatal hernia, essential thrombocythemia/JAK2 mutation on Hydrea Rx, dementia, anxiety/mood disorder. Last confinement 2018 under Orthopedics spine service for decompression surgery for lumbar spine stenosis. Patient with worsening epigastric discomfort radiating to the chest associated with reflux, indigestion and belching symptoms for about 6 months now. Pain somewhat worse on eating. Poor appetite, unquantified weight loss. Symptoms attributed by GI to GERD on outpatient visit 2 months ago Pepcid added to omeprazole. Outpatient endoscopy recommended and done by Franchesca VILLASEÑOR 2 weeks ago. EGD visualized gastroesophageal flap valve and classified as Hill grade 4 (no fold, wide open lumen, hiatal hernia present). Colonoscopy showed diverticulosis and polyps. Patient had worsening epigastric discomfort over the last few days going to the lower chest. Some nausea, no emesis. No cough, no SOB, no headache symptoms. No black or bloody stools. Patient brought to ER for evaluation by family. Highest SBP of 210s documented at the ER. 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 Lungs: Clear to auscultation, decreased, no wheezes rales or rhonchi CV: S1-S2, regular Abdomen: Soft, nontender, nondistended Extremities: No significant edema Neuro: No focal deficits Psych: Cooperative, normal mood Updated Medication List Medication Instructions Recorded Confirmed Type cyanocobalamin (vitamin B-12) 1,000 mcg PO HS 08/08/18 01/29/25 History 1,000 mcg tablet (Vitamin B-12) nasal dilators (Breathe Right 08/08/18 01/29/25 History strips) nitroglycerin 0.4 mg sublingual 0.4 mg sublingual DIRECTED PRN 08/08/18 01/29/25 History tablet Chest Pain polyethylene glycol 3350 17 gram 17 g PO HS 08/08/18 01/29/25 History oral powder packet (Miralax) warfarin 5 mg tablet (Jantoven) 5 mg PO 2XWK 08/08/18 01/29/25 History acetaminophen 500 mg tablet 1,000 mg PO BID 01/25/21 01/29/25 History (Tylenol Extra Strength) hydroxyurea 500 mg capsule 500 mg PO DAILY 01/25/21 01/29/25 History ondansetron 4 mg disintegrating 4 mg PO Q6H PRN nausea and 01/25/21 01/29/25 Rx tablet vomiting #14 tabs aluminum-mag hydroxide-simethicone 15 ml PO Q6H PRN 04/26/22 01/29/25 History 200 mg-200 mg-20 mg/5 mL oral susp HEARTBURN/INDIGESTION aspirin 81 mg tablet,delayed 81 mg PO QAM 04/26/22 01/29/25 History release duloxetine 30 mg capsule,delayed 30 mg PO QAM 04/26/22 01/29/25 History release famotidine 20 mg tablet 40 mg PO HS HEARTBURN/INDIGESTION 04/26/22 01/29/25 History folic acid 800 mcg tablet 0.8 mg PO HS 04/26/22 01/29/25 History atorvastatin 80 mg tablet 80 mg PO QAM 01/29/25 01/29/25 History cholecalciferol (vitamin D3) 25 25 mcg PO HS 01/29/25 01/29/25 History mcg (1,000 unit) capsule (Vitamin D3) denosumab 60 mg/mL subcutaneous 60 mg subcut .[id number] 01/29/25 01/29/25 History syringe (Prolia) hydrocodone 5 mg-acetaminophen 325 1 tab PO Q8H PRN Pain 01/29/25 01/29/25 History mg tablet losartan 100 mg tablet 100 mg PO QAM 01/29/25 01/29/25 History nystatin 100,000 unit/gram topical 1 applic topical BID PRN SKIN FOLDS 01/29/25 01/29/25 History powder phenylephrine 5 mg-acetaminophen 1 cap PO DIRECTED PRN Cold 01/29/25 01/29/25 History 325 mg capsule (Vicks Sinex Symptoms Daytime) simethicone 80 mg chewable tablet 80 mg PO Q6H PRN GAS DISCOMFORT 01/29/25 01/29/25 History sucralfate 1 gram tablet (Carafate) 1 g PO ACHS 01/29/25 01/29/25 History warfarin 5 mg tablet 2.5 mg PO 5XWK 01/29/25 01/29/25 History amlodipine 5 mg tablet 5 mg PO QAM #30 tabs 01/30/25 Rx omeprazole 40 mg capsule,delayed 40 mg PO BID #60 caps 01/30/25 Rx release Hospital Stay Data Consultations 01/29/25 23:10 ED Decision to Admit Stat Diagnostic Imagining Performed 01/29/25 19:22 CT angio abdomen pelvis w con Stat CT angio chest PE protocol Stat Reviewed imaging, laboratory and diagnostic studies. Pertinent findings as below. WBCs 8.1 Hemoglobin 10.3 Platelets of 425 INR 5.2 Sodium 139 Potassium 3.1, replaced prior to discharge Creatinine 0.79 Troponins reviewed CTA of the chest showed large esophageal hernia no PE Pending Results Patient Have Any Pending Studies at Discharge: No Discharge Instructions Given to Patient (Per Discharging Provider) Your INR was a little high today. Hold your warfarin today and Saturday. Get your INR checked per your usual process on Saturday and resume warfarin based on that result. Follow-up with your PCP. Your chest discomfort is due to your stomach being in your chest. Recommend small frequent meals. Recommend avoiding hard or chunky foods Total Time Total Time Spent Total Time Spent (In Minutes): 33
[2025-01-30 10:52] VITALS: PULSE 78
--- NOTE | 2025-01-30 11:57 | Electrocardiogram Report ---
Test Reason : Blood Pressure : */* mmHG Vent. Rate : 72 BPM Atrial Rate : 72 BPM P-R Int : 196 ms QRS Dur : 82 ms QT Int : 428 ms P-R-T Axes : 27 -13 -9 degrees QTcB Int : 468 ms Normal sinus rhythm Minimal voltage criteria for LVH, may be normal variant ( R in aVL ) Abnormal ECG When compared with ECG of 17-Mar-2023 16:34, Previous ECG has undetermined rhythm, needs review Nonspecific T wave abnormality, improved in Lateral leads Confirmed by Kadi Carbajal ([id number]) on 01/30/2025 11:57:01 AM Referred By: REFERRED SELF Confirmed By: Kadi Carbajal
[2025-01-30] MEDS ORDERED: FAMOTIDINE 40 MG TABLET PO SCH (21:00)
[2025-01-30] MEDS ORDERED: CYANOCOBALAMIN (B-12) 500 MCG TABLET PO SCH (21:00)
[2025-01-30] MEDS ORDERED: POLYETHYLENE (MIRALAX) 17 GM PACK PO SCH (21:00)
== END 2025-01-30 12:49 | disposition home or self-care (01) ==
LOC: ED 18:18 → 4W 18:18

== ENCOUNTER 2025-02-10 16:25 | Observation (INO) ==
[2025-02-10 17:00] LABS: Hematocrit (blood only) 35.5 % (37.0-47.0); Hemoglobin 11.5 g/dl (12.0-16.0); Immature Granulocytes # (auto) 0.02 K/uL (0.01-0.20); Immature Granulocytes % (auto) 0.3 %; Mean Corpuscular Hemoglobin 31.8 pg (25.0-34.0); Mean Corpuscular Volume 98.1 fL (80.0-100.0); Platelet Count 500 K/uL (130-400); RDW Standard Deviation 62.2 fL (36.4-46.3); Red Blood Count 3.62 M/uL (4.20-5.40); White Blood Count 6.77 K/ul (4.8-10.8)
[2025-02-10 17:17] LABS: Alanine Aminotransferase 32.0 U/L (7-52); Albumin Globulin Ratio 1.2 (0.9-2); Albumin Level 3.6 gm/dl (3.4-5.0); Alkaline Phosphatase 59.0 U/L (34-104); Anion Gap 8.0 (3-11); Bilirubin,Total 0.9 mg/dl (0.2-1.0); Blood Urea Nitrogen 15.0 mg/dl (6-23); Calcium 9.4 mg/dl (8.6-10.3); Carbon Dioxide 23.0 mmol/L (21-32); Chloride 106.0 mmol/L (98-107); Creatinine Clr Calc Pharmacy 56.5 ml/min; Globulin 3.1 gm/dl (2.5-4.0); Glucose 110.0 mg/dl (70-99(Fasting)); Lipase 14.0 U/L (11-82); Magnesium 1.9 mg/dl (1.7-2.4); Potassium 3.7 mmol/L (3.5-5.1); Sodium 137.0 mmol/L (136-145); Total Protein 6.7 gm/dl (6.0-8.3)
[2025-02-10 17:24] LABS: INR 2.6 (0.9-1.1); Prothrombin Time 26.1 Seconds (9.0-12.0)
--- NOTE | 2025-02-10 17:29 | Emergency Department Note ---
Impression & Plan Chest pain ED Provider Note HISTORY OF PRESENT ILLNESS: Patient is a 74-year-old female presenting with chest pain and shortness of breath. Patient is demented and has no recollection of why she is here. Her presents to bedside and supplies more history. Reports that the patient had come out of the shower and was saying she was having chest pain and shortness of breath and he states that she was asking him to call 911. Patient was given 4 mg IV Zofran and 500 cc of fluid and route with EMS. On my assessment in the emergency department, the patient is symptom-free. states that she is back to her normal self. He states that she has a hiatal hernia but they are currently following with a provider with in the outpatient setting. Patient is chest pain-free on arrival. ROS: as above PHYSICAL EXAM: Constitutional: Patient appears in no acute distress. HENT: Head: Normocephalic and atraumatic. Eyes: EOMI, PERRL Mouth/Throat: Mucous membranes moist. Neck: Trachea midline. Neck supple. Cardiovascular: RRR, No murmurs, rubs or gallops. Intact distal pulses. Pulmonary/Chest: No respiratory distress. Breath sounds clear and equal bilaterally. No wheezes or rales. Abdominal: Abdomen soft, no tenderness, rebound or guarding. Musculoskeletal: No edema, tenderness or deformity noted. Skin: Warm and dry. No rash, erythema, pallor or cyanosis Psychiatric: Appropriate mood and affect for situation. Neurological: Alert and keenly responsive. CN II-XII grossly intact, moving all extremities equally and fully. MDM: - Vitals signs stable. - History obtained via patient's , given patient's dementia. History as above. - Chronic conditions affecting care: HTN; pulmonary HTN; PE (on warfarin); essential thrombocytopenia; GERD; dementia; depression/anxiety - Differential diagnoses include, but are not limited to: Acute coronary syndrome; pulmonary embolism; dissection; tension pneumothorax; esophageal rupture; pneumonia - Order placed for continuous cardiac monitoring. At this time, monitor showed rate of 71 bpm with normal sinus rhythm, per my interpretation. - External medical records reviewed. Discharge summary dated 01/30/2025 was reviewed. Patient was admitted at that time secondary to abdominal pain and lower chest pain. She was found to have a large hiatal hernia and supratherapeutic INR. - EKG image interpreted by myself showed normal sinus rhythm. Rate 77 bpm. QT 392. No acute ischemic changes. - Laboratory workup interpreted by myself showed normal WBC; chronic anemia (Hgb 11.5); elevated INR (2.6); stable electrolytes; normal troponin; elevated AST (48) - UA negative for infection - CXR image reviewed interpreted by myself as no acute pneumonia, per my interpretation. - Workup grossly unremarkable in the emergency department. However, when attempting to ambulate with nursing staff the patient was too weak to get up and get around and was also complaining of recurrent chest pain. Will discuss case with hospitalist service. - Discussion was had with patient case manager about patient's case and need for admission - Hospitalist consulted for admission - Patient admitted to [facility] hospitalist service for further evaluation and management. ASSESSMENT AND PLAN: Diagnosis: Chest pain Plan: Admit Past Med/Surg History Problem List (Updated 02/11/25 @ 01:38 by Francesca Valerio MD) Chest pain (Acute) Chest pain Demand ischemia of myocardium Supratherapeutic INR Hypertension, uncontrolled Large hiatal hernia Asymptomatic hypertensive urgency Hypokalemia (Acute) Elevated troponin I level (Acute) Epigastric abdominal pain (Acute) Nausea (Acute) Acute blood loss anemia (Acute) H/O lumbosacral spine surgery (Acute) Hypertension (Chronic) Hyperlipidemia (Chronic) History of pulmonary embolism (Chronic) Last in 2013, on coumadin Sleep apnea (Chronic) 02 HS Acid reflux (Chronic) Osteoarthritis (Chronic) Essential thrombocytosis (Chronic) Medical History Stress incontinence Hiatal hernia Poor short term memory Learning disability 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 Surgical History History of cardiac cath YRS AGO, [place], PT CAN'T REMEMBER REASON...DENIES STENTS History of tubal ligation History of shoulder surgery R & L - SEPERATE PROCEDURES FOR Family History Other Family history of stroke Heart disease Social History Smoking Status: Never smoker Do You Dip or Chew Tobacco: No; Hx Alcohol Use: No Hx Substance Use: No Preferred Language: Indonesian Communication Ability: Effective Communication Ability Comment: LEARNING DISABILITY/CAN'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 Beliefs That Will Affect Care: None Current Living Situation: Spouse Current Living Situation Comment: with Feels Safe at Home: Yes Safety Concerns: Feels Safe At This Time Assistive Devices: Walker Allergies Allergies Allergy/AdvReac Type Severity Reaction Status Date / Time scallops Allergy Severe throat Verified 02/10/25 19:35 swelling Penicillins Allergy Intermediate RASH/NAUSEA Verified 02/10/25 19:35 Sulfa (Sulfonamide Allergy Intermediate RASH/NAUSEA Verified 02/10/25 19:35 Antibiotics) tramadol AdvReac Severe SEVERE Verified 02/10/25 19:35 NAUSEA lisinopril AdvReac Intermediate Cough Verified 02/10/25 19:35 lubiprostone [From Amitiza] AdvReac Intermediate Hypotension Verified 02/10/25 19:35 Home Meds Home Medications Medication Instructions Recorded Confirmed cyanocobalamin (vitamin B-12) 1,000 mcg PO HS 08/08/18 02/10/25 1,000 mcg tablet (Vitamin B-12) nasal dilators (Breathe Right 08/08/18 01/29/25 strips) nitroglycerin 0.4 mg sublingual 0.4 mg sublingual DIRECTED PRN 08/08/18 02/10/25 tablet Chest Pain polyethylene glycol 3350 17 gram 17 g PO HS 08/08/18 02/10/25 oral powder packet (Miralax) warfarin 5 mg tablet (Jantoven) 5 mg PO 2XWK 08/08/18 02/10/25 acetaminophen 500 mg tablet 1,000 mg PO BID PRN PAIN/FEVER 01/25/21 02/10/25 (Tylenol Extra Strength) hydroxyurea 500 mg capsule 500 mg PO DAILY 01/25/21 02/10/25 aluminum-mag hydroxide-simethicone 15 ml PO Q6H PRN 04/26/22 02/10/25 200 mg-200 mg-20 mg/5 mL oral susp HEARTBURN/INDIGESTION aspirin 81 mg tablet,delayed 81 mg PO QAM 04/26/22 02/10/25 release duloxetine 30 mg capsule,delayed 30 mg PO QAM 04/26/22 02/10/25 release famotidine 20 mg tablet 40 mg PO HS HEARTBURN/INDIGESTION 04/26/22 02/10/25 folic acid 800 mcg tablet 0.8 mg PO HS 04/26/22 02/10/25 atorvastatin 80 mg tablet 80 mg PO QAM 01/29/25 02/10/25 cholecalciferol (vitamin D3) 25 25 mcg PO HS 01/29/25 02/10/25 mcg (1,000 unit) capsule (Vitamin D3) hydrocodone 5 mg-acetaminophen 325 1 tab PO Q8H PRN Pain 01/29/25 02/10/25 mg tablet losartan 100 mg tablet 100 mg PO QAM 01/29/25 02/10/25 sucralfate 1 gram tablet (Carafate) 1 g PO ACHS PRN abd pain 01/29/25 02/10/25 warfarin 5 mg tablet 2.5 mg PO 5XWK 01/29/25 02/10/25 calcium carbonate 750 1 tab PO DIRECTED PRN 02/10/25 02/10/25 mg-simethicone 80 mg chewable HEARTBURN/GAS DISCOMFORT tablet (Emily-Zachariah Heartburn-Gas) mupirocin 2 % topical ointment 1 applic topical BID PRN SKIN 02/10/25 02/10/25 IRRITATIONS triamcinolone acetonide 0.1 % 1 applic topical BID PRN SKIN 02/10/25 02/10/25 topical cream IRRITATIONS Previous Rx's Medication Instructions Recorded ondansetron 4 mg disintegrating 4 mg PO Q6H PRN nausea and 01/25/21 tablet vomiting #14 tabs amlodipine 5 mg tablet 5 mg PO QAM #30 tabs 01/30/25 omeprazole 40 mg capsule,delayed 40 mg PO BID #60 caps 01/30/25 release Results & Data (ED) Vital Signs Vital Signs - 24 hr 02/10/25 16:29 02/10/25 16:49 02/10/25 16:49 Temperature 36.5 C Temperature Source Oral Pulse Rate - Lying Pulse Rate - Sitting Pulse Rate - Standing Pulse Rate 81 79 Pulse Rate [Apical] Pulse Rate [Exercises] Respiratory Rate 18 Blood Pressure - Lying Blood Pressure - Sitting Blood Pressure- Standing Blood Pressure 138/84 Blood Pressure [Right Arm] Blood Pressure Mean 102 Blood Pressure Mean [Right Arm] Pulse Oximetry 94 Pulse Oximetry [Exercises] Oxygen Delivery Method Room Air Room Air Sepsis Recent Fever Within 48 Hours No Sepsis New/Unexplained Change in Mental Status No Sepsis Action Taken by Nursing No Action Required 02/10/25 18:40 02/10/25 19:01 02/10/25 19:08 Temperature Temperature Source Pulse Rate - Lying 79 Pulse Rate - Sitting 88 Pulse Rate - Standing 98 H Pulse Rate Pulse Rate [Apical] 84 Pulse Rate [Exercises] 61 Respiratory Rate 18 Blood Pressure - Lying 139/67 Blood Pressure - Sitting 120/68 Blood Pressure- Standing 118/62 Blood Pressure Blood Pressure [Right Arm] 126/74 Blood Pressure Mean Blood Pressure Mean [Right Arm] 91 Pulse Oximetry 95 Pulse Oximetry [Exercises] 98 Oxygen Delivery Method Room Air Room Air Sepsis Recent Fever Within 48 Hours Sepsis New/Unexplained Change in Mental Status Sepsis Action Taken by Nursing 02/10/25 20:00 Temperature Temperature Source Pulse Rate - Lying Pulse Rate - Sitting Pulse Rate - Standing Pulse Rate Pulse Rate [Apical] 73 Pulse Rate [Exercises] Respiratory Rate 18 Blood Pressure - Lying Blood Pressure - Sitting Blood Pressure- Standing Blood Pressure Blood Pressure [Right Arm] 134/80 Blood Pressure Mean Blood Pressure Mean [Right Arm] 98 Pulse Oximetry 100 Pulse Oximetry [Exercises] Oxygen Delivery Method Sepsis Recent Fever Within 48 Hours Sepsis New/Unexplained Change in Mental Status Sepsis Action Taken by Nursing Laboratory Data 02/10/25 16:35 02/10/25 16:35 Lab Results 02/10/25 02/10/25 02/10/25 Range/Units 16:35 18:37 21:00 WBC 6.77 (4.8-10.8) K/ul RBC 3.62 L (4.20-5.40) M/uL Hgb 11.5 L (12.0-16.0) g/dl Hct 35.5 L (37.0-47.0) % MCV 98.1 (80.0-100.0) fL MCH 31.8 (25.0-34.0) pg MCHC 32.4 (32.0-36.0) g/dL RDW Std Deviation 62.2 H (36.4-46.3) fL RDW Coeff of Ameena 17.2 H (11.5-14.5) % Plt Count 500 H (130-400) K/uL MPV 10.2 (9.4-12.4) fL Immature Gran % (Auto) 0.3 % Neut % (Auto) 71.0 % Lymph % (Auto) 18.6 % [place] % (Auto) 8.1 % Eos % (Auto) 1.3 % Baso % (Auto) 0.7 % Neut # (Auto) 4.80 (1.40-6.50) K/uL Lymph # (Auto) 1.26 (1.20-3.40) K/uL [place] # (Auto) 0.55 (0.11-0.59) K/uL Eos # (Auto) 0.09 (0.00-0.50) K/uL Baso # (Auto) 0.05 (0.00-0.20) K/uL Immature Gran # (Auto) 0.02 (0.01-0.20) K/uL PT 26.1 H (9.0-12.0) Seconds INR 2.6 H (0.9-1.1) Sodium 137 (136-145) mmol/L Potassium 3.7 (3.5-5.1) mmol/L Chloride 106 (98-107) mmol/L Carbon Dioxide 23 (21-32) mmol/L Anion Gap 8 (3-11) BUN 15 (6-23) mg/dl Creatinine 0.92 (0.6-1.2) mg/dl Est Cr Clr Drug Dosing 56.5 ml/min eGFR 64.53 BUN/Creatinine Ratio 16.3 (10-20) Glucose 110 H (70-99(Fasting)) mg/dl Calcium 9.4 (8.6-10.3) mg/dl Magnesium 1.9 (1.7-2.4) mg/dl Total Bilirubin 0.9 (0.2-1.0) mg/dl AST 48 H (13-39) U/L ALT 32 (7-52) U/L Alkaline Phosphatase 59 (34-104) U/L Troponin I High Sens 5.4 6.5 (0-14) pg/ml B-Natriuretic Peptide 90 (0-100) pg/ml Total Protein 6.7 (6.0-8.3) gm/dl Albumin 3.6 (3.4-5.0) gm/dl Globulin 3.1 (2.5-4.0) gm/dl Albumin/Globulin Ratio 1.2 (0.9-2) Lipase 14 (11-82) U/L Urine Color Yellow Urine Appearance Clear (Clear) Urine pH 8.5 H (4.5-7.5) Ur Specific Cecil 1.008 (1.000-1.030) Urine Protein Negative (Negative) Urine Glucose (UA) Negative (Negative) Urine Ketones Negative (Negative) Urine Blood Trace H (Negative) Urine Nitrite Negative (Negative) Urine Bilirubin Negative (Negative) Urine Urobilinogen Negative (Negative) Ur Leukocyte Esterase 1+ H (Negative) Urine WBC (Auto) 0-5 (0-5) /hpf Urine RBC (Auto) 0-2 (0-2) /hpf U Hyaline Cast (Auto) 6-10 H (0-2) /lpf U Epithel Cells (Auto) 0-2 (0-2) /hpf Urine Bacteria (Auto) None Seen (None Seen) Hyaline Casts Present A (None Presnt) /lpf Urine Comment Administered Medications Folic Acid (Folic Acid 400 Mcg Tab) 800 mcg PO HS PORTILLO Stop: 03/12/25 21:59 Last Admin: 02/10/25 22:20 Dose: 800 mcg Documented By: ARNALDO Promethazine HCl (Phenergan) 6.25 mg in 50.25 mls @ 201 mls/hr IV Q6H PRN PRN Reason: Nausea And Vomiting Stop: 03/12/25 21:48 Last Infusion: 02/10/25 22:38 Dose: Infused Documented By: Admin: 02/10/25 22:22 Dose: 201 mls/hr Documented By: ARNALDO Sodium Chloride (Nss) 1,000 mls @ 60 mls/hr IV .[id number] ONE Stop: 02/11/25 14:39 Last Admin: 02/10/25 22:21 Dose: 60 mls/hr Documented By: ARNALDO Pantoprazole Sodium (Pantoprazole 40 Mg Tab) 40 mg PO BID PORTILLO Stop: 03/12/25 21:59 Last Admin: 02/10/25 22:21 Dose: 40 mg Documented By: DEMARIOW Discontinued Medications Famotidine (Pepcid 20mg Iv Push) 20 mg in 5 mls @ 2.5 mls/min IV NOW STA Stop: 02/10/25 21:54 Last Admin: 02/10/25 22:20 Dose: 2.5 mls/min Documented By: ARNALDO Ioversol (Optiray 320 100ml) 90 ml IV ONCE ONE Stop: 02/10/25 22:12 Last Admin: 02/10/25 22:11 Dose: 90 ml Documented By: TRACY Metoprolol Tartrate (Metoprolol Tartrate 1 Mg/Ml Vial) 2.5 mg IV NOW STA Stop: 02/10/25 22:56 Last Admin: 02/11/25 00:57 Dose: Not Given Documented By: MRL Nitroglycerin (Nitroglycerin Sl 0.4 Mg/Tab Tab) 0.4 mg SL NOW STA Stop: 02/10/25 20:49 Last Admin: 02/10/25 21:02 Dose: Not Given Documented By: LCD Sucralfate (Sucralfate 1 Gm Tab) 1 gm PO NOW STA Stop: 02/10/25 21:33 Last Admin: 02/10/25 22:20 Dose: 1 gm Documented By: ASW Imaging Data Radiologist's Impression: Chest X-Ray 02/10/25 16:49 Clinical History: Sepsis Technique: A frontal view of the chest was obtained Comparison is made to the prior examination dated 01/29/2025 Findings: There are no definite pulmonary infiltrates. The heart size is at the upper limit of normal. No pleural effusion or pneumothorax is seen. No fracture is noted. No foreign body is seen Impression: No active disease Electronically signed by Alex Bloom 02-10-2025 6:10 PM Discharge Plan Visit Data Chief Complaint: Illness Stated Complaint: CHEST PAIN, ILLNESS ED Provider: Francesca Valerio Discharge Problem: Chest pain Patient Disposition: Admitted As Inpatient Condition: Fair Discharge Instructions Interventions: ED Discharge Assessment Last Done: 02/10/25 22:38
--- NOTE | 2025-02-10 18:10 | XRay Report ---
Clinical History: Sepsis Technique: A frontal view of the chest was obtained Comparison is made to the prior examination dated 01/29/2025 Findings: There are no definite pulmonary infiltrates. The heart size is at the upper limit of normal. No pleural effusion or pneumothorax is seen. No fracture is noted. No foreign body is seen Impression: No active disease Electronically signed by Alex Bloom 02-10-2025 6:10 PM
--- NOTE | 2025-02-10 19:15 | Electrocardiogram Report ---
Test Reason : Blood Pressure : */* mmHG Vent. Rate : 77 BPM Atrial Rate : * BPM P-R Int : * ms QRS Dur : 80 ms QT Int : 392 ms P-R-T Axes : * -13 8 degrees QTcB Int : 443 ms Sinus rhythm with 1st degree AV block Abnormal ECG Confirmed by Berhane Ford ([id number]) on 02/10/2025 7:14:56 PM Referred By: Confirmed By: Berhane Ford
[2025-02-10 19:25] LABS: Appearance Urine Clear (Clear); Bacteria Urine Automated None Seen (None Seen); Epithelial Cell Urine Auto 0-2 /hpf (0-2); Glucose Urine UA Negative (Negative); RBC Urine Automated 0-2 /hpf (0-2); WBC Urine Automated 0-5 /hpf (0-5)
--- NOTE | 2025-02-10 21:00 | History & Physical Report ---
Date of Service February 10, 2025 Assessment & Plan (1) Epigastric abdominal pain: (2) Chest pain: (3) Large hiatal hernia: (4) History of pulmonary embolism: (5) Essential thrombocytosis: (6) Hypertension: (7) Hyperlipidemia: Plan: Assessment and Plan per Dr Duran. See addendum. History of Present Illness Primary Care Provider: Madeline Lopez MD Patient is 74-year-old female with PMH HTN, pulmonary hypertension, history PE, anticoagulated on warfarin, essential thrombocythemia, GERD, hiatal hernia, dementia, anxiety, depression presented to ER with c/o chest pain today. Per inpatient chart review Recent [facility] hospital admission 01/29-01/30/25 for abdominal pain, lower chest pain thought secondary to large hiatal hernia, hypertensive urgency treated with BID PPI and Carafate. Amlodipine was added to BP regimen Per chart review seen GI on 02/02/2025 with reported improvement of symptoms with lifestyle changes of discontinuing soda, eating small meals a day. Further history obtained from significant other. Limited history from patient secondary to cognitive status. Significant other reports patient has been complaining of less epigastric and chest discomfort. States has been using Carafate twice daily. Did Not have any Carafate today. States patient was in hot shower and when she came out she seemed flushed and c/o chest pain and SOB and asked to call 911. Significant other states the entire time patient was walking with her walker and did not appear to have visible SOB. Patient doesn't remember incident. She states currently feels "fine" does have epigastric and chest discomfort with palpation only. Denies N/V/D. Last BM yesterday. Denies urinary symptoms. Denies any known fever/chills. Today in ER troponin negative x 2. EKG without acute ST changes Previous GI workup: Colonoscopy: 01/19/2025--perianal and digital rectal exam normal. Multiple small and large mouth diverticula were found in the sigmoid colon and descending colon. 2 Sessile polyps were found in the transverse colon. Removed. Pathology: Fragments of tubular adenoma EGD: 01/19/2025-- Z-line 35 cm from incisors. GE flap valve classified as hill grade 4, no fold wide open lumen, hiatal hernia present. Normal stomach and duodenum. Pathology: No evidence of celiac disease. Mild chronic inactive gastritis. No intestinal metaplasia or dysplasia. CTAP: 01/29/2025 ([facility])-- large esophageal hiatal hernia. Liver, gallbladder, pancreas all unremarkable. Bowel unremarkable. Gastric emptying study:09/28/2024--normal solid gastric emptying study however testing limited as patient did not eat entire meal. Moderate-sized hiatal hernia Allergies Allergy/AdvReac Type Severity Reaction Status Date / Time scallops Allergy Severe throat Verified 02/10/25 19:35 swelling Penicillins Allergy Intermediate RASH/NAUSEA Verified 02/10/25 19:35 Sulfa (Sulfonamide Allergy Intermediate RASH/NAUSEA Verified 02/10/25 19:35 Antibiotics) tramadol AdvReac Severe SEVERE Verified 02/10/25 19:35 NAUSEA lisinopril AdvReac Intermediate Cough Verified 02/10/25 19:35 lubiprostone [From Amitiza] AdvReac Intermediate Hypotension Verified 02/10/25 19:35 Home Medications Medication Instructions Recorded Confirmed Type cyanocobalamin (vitamin B-12) 1,000 mcg PO HS 08/08/18 02/10/25 History 1,000 mcg tablet (Vitamin B-12) nasal dilators (Breathe Right 08/08/18 01/29/25 History strips) nitroglycerin 0.4 mg sublingual 0.4 mg sublingual DIRECTED PRN 08/08/18 02/10/25 History tablet Chest Pain polyethylene glycol 3350 17 gram 17 g PO HS 08/08/18 02/10/25 History oral powder packet (Miralax) warfarin 5 mg tablet (Jantoven) 5 mg PO 2XWK 08/08/18 02/10/25 History acetaminophen 500 mg tablet 1,000 mg PO BID PRN PAIN/FEVER 01/25/21 02/10/25 History (Tylenol Extra Strength) hydroxyurea 500 mg capsule 500 mg PO DAILY 01/25/21 02/10/25 History ondansetron 4 mg disintegrating 4 mg PO Q6H PRN nausea and 01/25/21 02/10/25 Rx tablet vomiting #14 tabs aluminum-mag hydroxide-simethicone 15 ml PO Q6H PRN 04/26/22 02/10/25 History 200 mg-200 mg-20 mg/5 mL oral susp HEARTBURN/INDIGESTION aspirin 81 mg tablet,delayed 81 mg PO QAM 04/26/22 02/10/25 History release duloxetine 30 mg capsule,delayed 30 mg PO QAM 04/26/22 02/10/25 History release famotidine 20 mg tablet 40 mg PO HS HEARTBURN/INDIGESTION 04/26/22 02/10/25 History folic acid 800 mcg tablet 0.8 mg PO HS 04/26/22 02/10/25 History atorvastatin 80 mg tablet 80 mg PO QAM 01/29/25 02/10/25 History cholecalciferol (vitamin D3) 25 25 mcg PO HS 01/29/25 02/10/25 History mcg (1,000 unit) capsule (Vitamin D3) hydrocodone 5 mg-acetaminophen 325 1 tab PO Q8H PRN Pain 01/29/25 02/10/25 History mg tablet losartan 100 mg tablet 100 mg PO QAM 01/29/25 02/10/25 History sucralfate 1 gram tablet (Carafate) 1 g PO ACHS PRN abd pain 01/29/25 02/10/25 History warfarin 5 mg tablet 2.5 mg PO 5XWK 01/29/25 02/10/25 History amlodipine 5 mg tablet 5 mg PO QAM #30 tabs 01/30/25 02/10/25 Rx omeprazole 40 mg capsule,delayed 40 mg PO BID #60 caps 01/30/25 02/10/25 Rx release calcium carbonate 750 1 tab PO DIRECTED PRN 02/10/25 02/10/25 History mg-simethicone 80 mg chewable HEARTBURN/GAS DISCOMFORT tablet ([facility]ily-[place] Heartburn-Gas) mupirocin 2 % topical ointment 1 applic topical BID PRN SKIN 02/10/25 02/10/25 History IRRITATIONS triamcinolone acetonide 0.1 % 1 applic topical BID PRN SKIN 02/10/25 02/10/25 History topical cream IRRITATIONS Past Med/Surg History Problem List (Updated 02/10/25 @ 21:40 by Mitali Boothe PA-C) Chest pain Demand ischemia of myocardium Supratherapeutic INR Hypertension, uncontrolled Large hiatal hernia Asymptomatic hypertensive urgency Hypokalemia (Acute) Elevated troponin I level (Acute) Epigastric abdominal pain (Acute) Nausea (Acute) Acute blood loss anemia (Acute) H/O lumbosacral spine surgery (Acute) Hypertension (Chronic) Hyperlipidemia (Chronic) History of pulmonary embolism (Chronic) Last in 2013, on coumadin Sleep apnea (Chronic) 02 HS Acid reflux (Chronic) Osteoarthritis (Chronic) Essential thrombocytosis (Chronic) Medical History Stress incontinence Hiatal hernia Poor short term memory Learning disability 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 Surgical History History of cardiac cath YRS AGO, [place], PT CAN'T REMEMBER REASON...DENIES STENTS History of tubal ligation History of shoulder surgery R & L - SEPERATE PROCEDURES FOR Family History Other Family history of stroke Heart disease Social History Smoking Status: Never smoker Do You Dip or Chew Tobacco: No; Hx Alcohol Use: No Hx Substance Use: No Preferred Language: Maori Communication Ability: Effective Communication Ability Comment: LEARNING DISABILITY/CAN'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 Knitted Garment Finisher Required: No Beliefs That Will Affect Care: None Current Living Situation: Spouse Current Living Situation Comment: with Feels Safe at Home: Yes Assistive Devices: Denture - Upper, Glasses and Walker Review of Systems Review of Systems: All systems reviewed & are unremarkable except as noted in HPI & below Physical Exam Physical Exam: General: no distress, overweight elderly female Head: normocephalic, atraumatic Eyes: conjunctiva non-injected, anicteric ENT: normal inspection external ears, nose, mucous membranes moist Neck: supple, trachea midline, non-tender Lungs: clear, no respiratory distress, no wheezing/rhonchi/rales CV: RRR, no murmur, no JVD, no pretibial edema Chest: no rashes. +tenderness to palpation Abd: normal BS, soft, +tender epigastric region only Ext: no cyanosis, no calf tenderness Neuro: Alert, oriented to person. pleasantly confused, no focal deficits noted Skin: warm, dry Results & Data Results & Data Vital Signs (Past 12 Hours) Vital Signs Temp Pulse Pulse Pulse Resp BP BP 02/10/25 19:01 61 02/10/25 18:40 84 18 126/74 02/10/25 16:49 02/10/25 16:49 79 02/10/25 16:29 36.5 C 81 18 138/84 Pulse Ox Pulse Ox O2 Del Method 02/10/25 19:01 98 Room Air 02/10/25 18:40 95 Room Air 02/10/25 16:49 Room Air 02/10/25 16:49 02/10/25 16:29 94 Room Air Laboratory Results Short CBC 02/10/25 Range/Units 16:35 WBC 6.77 (4.8-10.8) K/ul Hgb 11.5 L (12.0-16.0) g/dl Hct 35.5 L (37.0-47.0) % Plt Count 500 H (130-400) K/uL BMP 02/10/25 16:35 Sodium 137 Potassium 3.7 Chloride 106 Carbon Dioxide 23 BUN 15 Creatinine 0.92 Glucose 110 H Calcium 9.4 Liver Function 02/10/25 Range/Units 16:35 Total Bilirubin 0.9 (0.2-1.0) mg/dl AST 48 H (13-39) U/L ALT 32 (7-52) U/L Alkaline Phosphatase 59 (34-104) U/L Albumin 3.6 (3.4-5.0) gm/dl Urine 02/10/25 Range/Units 18:37 Urine Color Yellow Urine Appearance Clear (Clear) Urine pH 8.5 H (4.5-7.5) Ur Specific [place] 1.008 (1.000-1.030) Urine Protein Negative (Negative) Urine Glucose (UA) Negative (Negative) Diagnostic Findings Chest X-Ray 02/10/25 16:49 Clinical History: Sepsis Technique: A frontal view of the chest was obtained Comparison is made to the prior examination dated 01/29/2025 Findings: There are no definite pulmonary infiltrates. The heart size is at the upper limit of normal. No pleural effusion or pneumothorax is seen. No fracture is noted. No foreign body is seen Impression: No active disease Electronically signed by Alex Bloom 02-10-2025 6:10 PM ECG Additional Comments: sinus rhythm, first degree AV block Supervising Physician Co-Signing Physician Notes IM ATTENDING : Patient seen and examined. History obtained from patient, family, and records. Concur with salient points upon review of preceding documentation by Ms. Mitali Boothe PA-C. Limited history from patient secondary to dementia. In addition, CT abdomen pelvis showed Moderate-size esophageal hiatal hernia. I take responsibility for plan of care below. FINAL ASSESSMENT AND PLAN as follows : Atypical chest pain from uncontrolled GERD from hiatal hernia Recurrent symptoms after patient instructed to use sucralfate as needed Hypertension, currently stable Recurrent PE on Coumadin, INR therapeutic hx RV systolic dysfunction as per records (EF 55%, TTE 2020) mild TR nonocclusive CAD as per records hyperlipidemia, on statin Rx JERMAINE (CPAP intolerance), pulmonary hypertension Hyperglycemia from prediabetes, hemoglobin A1c of 5.4 from 2022 Chronic anemia, hemoglobin at baseline essential thrombocythemia/JAK2 mutation on Hydrea Rx dementia, mentation at baseline OBS Admit to med/tele Analgesia Follow second troponin Continue PPI, Pepcid regimen Recommend maintenance sucralfate twice daily given recurrent pain with as needed dosing DC home in a.m. if patient comfortable Update hemoglobin A1c DVT prophylaxis. Coumadin INR between 2 and 3 Full code Patient partner requesting updates providers. Mr. Fransico Cooley, contact numbers [phone]. I spent a total of 30 minutes coordinating, documenting, and providing care for this patientexcludingtime spent by another provider/QHP. Text document was generated using [employer] voice recognition software. It may contain grammatical or spelling errors. Kindly contact undersigned for clarification of any documentation item in question.
[2025-02-10] MEDS: NITROGLYCERIN SL 0.4 MG/TAB TAB SL STA (21:02)
[2025-02-10] MEDS ORDERED: ACETAMINOPHEN 325 MG TAB PO PRN (21:54)
[2025-02-10] MEDS: OPTIRAY 320 100ml IV ONE (22:11)
[2025-02-10] MEDS: SUCRALFATE 1 GM TAB PO STA (22:20)
[2025-02-10] MEDS: FAMOTIDINE 20MG IV PUSH 20 MG/5 ML SYR IV STA (22:20)
[2025-02-10] MEDS: FOLIC ACID 400 MCG TAB PO SCH (22:20)
[2025-02-10] MEDS: SODIUM CHLORIDE 0.9% 1,000 ML IV ONE (22:21)
[2025-02-10] MEDS: PROMETHAZINE 6.25 MG/50.25 ML BAG IV PRN (22:22)
--- NOTE | 2025-02-10 23:02 | CT Scan Report ---
Exam(s): CT ABDOMEN + PELVIS With Contrast IV Amt: 90 ml optiray 320 EXAM: CT Abdomen and Pelvis With Intravenous Contrast CLINICAL HISTORY: Reason for exam: abd pain, coumadin, abn lft. TECHNIQUE: Axial computed tomography images of the abdomen and pelvis with intravenous contrast. CTDI is 25.6 mGy and DLP is 1082.78 mGy-cm. Automated exposure control was utilized for the study. A dose lowering technique was utilized adhering to the principles of ALARA. CONTRAST: Patient received 90 ml optiray 320 of IV contrast COMPARISON: 01/25/2021 FINDINGS: Lung bases: Unremarkable. No mass. No consolidation. Mediastinum: Moderate-size esophageal hiatal hernia. ABDOMEN: Liver: Unremarkable. No mass. Gallbladder and bile ducts: Unremarkable. No calcified stones. No ductal dilation. Pancreas: Unremarkable. No mass. No ductal dilation. Spleen: Unremarkable. No splenomegaly. Adrenals: Unremarkable. No mass. Kidneys and ureters: 0.7 cm hypodensity left kidney likely representing a cyst. No hydronephrosis. Stomach and bowel: Unremarkable. No obstruction. No mucosal thickening. PELVIS: Appendix: No findings to suggest acute appendicitis. Bladder: Unremarkable. No mass. Reproductive: Unremarkable as visualized. ABDOMEN and PELVIS: Intraperitoneal space: Unremarkable. No free air. No significant fluid collection. Bones/joints: Postop changes L2 through S1 interbody fusion with L 3 through S1 posterior laminectomies. No acute fracture. No dislocation. Soft tissues: Unremarkable. Vasculature: Unremarkable. No abdominal aortic aneurysm. Lymph nodes: Unremarkable. No enlarged lymph nodes. IMPRESSION: Moderate-size esophageal hiatal hernia. Postop changes of the L2 through S1 interbody fusion Electronically signed by: Vish Almendarez MD 02/10/25 23:01 PM
[2025-02-11] MEDS: METOPROLOL TARTRATE 1 MG/ML VIAL IV STA (00:57)
[2025-02-11 03:18] VITALS: O2SAT 95
[2025-02-11 06:17] LABS: Hematocrit (blood only) 30.7 % (37.0-47.0); Hemoglobin 10.4 g/dl (12.0-16.0); Immature Granulocytes # (auto) 0.01 K/uL (0.01-0.20); Immature Granulocytes % (auto) 0.2 %; Mean Corpuscular Hemoglobin 33.5 pg (25.0-34.0); Mean Corpuscular Volume 99.0 fL (80.0-100.0); Platelet Count 431 K/uL (130-400); RDW Standard Deviation 62.3 fL (36.4-46.3); Red Blood Count 3.10 M/uL (4.20-5.40); White Blood Count 5.16 K/ul (4.8-10.8)
[2025-02-11 06:39] LABS: Alanine Aminotransferase 23.0 U/L (7-52); Albumin Globulin Ratio 1.4 (0.9-2); Albumin Level 3.3 gm/dl (3.4-5.0); Alkaline Phosphatase 47.0 U/L (34-104); Anion Gap 3.0 (3-11); Bilirubin,Total 0.9 mg/dl (0.2-1.0); Blood Urea Nitrogen 14.0 mg/dl (6-23); Calcium 8.6 mg/dl (8.6-10.3); Carbon Dioxide 26.0 mmol/L (21-32); Chloride 110.0 mmol/L (98-107); Creatinine Clr Calc Pharmacy 61.4 ml/min; Globulin 2.4 gm/dl (2.5-4.0); Glucose 93.0 mg/dl (70-99(Fasting)); Potassium 3.6 mmol/L (3.5-5.1); Sodium 139.0 mmol/L (136-145); Total Protein 5.7 gm/dl (6.0-8.3)
[2025-02-11 06:57] LABS: INR 2.1 (0.9-1.1); Prothrombin Time 20.9 Seconds (9.0-12.0)
[2025-02-11 07:43] VITALS: BP 129/70; RESP 14; TEMP 98.1
[2025-02-11 08:12] LABS: Hemoglobin A1C 5.6 % (4.5-5.6)
[2025-02-11] MEDS: ASPIRIN 81 MG ECTAB PO SCH (09:28)
[2025-02-11] MEDS: ATORVASTATIN 40 MG TAB PO SCH (09:28)
[2025-02-11] MEDS: LOSARTAN POTASSIUM 50 MG TAB PO SCH (09:30)
[2025-02-11] MEDS: SUCRALFATE 1 GM TAB PO SCH (09:31)
[2025-02-11] MEDS: HYDROXYUREA 500 MG CAP PO SCH (09:32)
--- NOTE | 2025-02-11 09:37 | Discharge Summary ---
Discharge Summary Date of Service February 11, 2025 Principal Dx & Hospital Course #1 = Principal Diagnosis (1) Atypical chest pain: (2) Large hiatal hernia: (3) Vasovagal reaction: (4) Current use of health therapist anticoagulation: Plan Patient 74-year-old female presents to the emergency room with somewhat vague complaints. Did apparently complain of some chest pain. Patient was worked up for acute coronary syndrome. Troponins were negative x 2 sets. She was observed in the hospital and there was no significant arrhythmias. Other laboratory studies were stable. Patient has known large hiatal hernia which is quite symptomatic for her. She has an appointment in the coming weeks to see a surgeon for possible surgical intervention on this. On the morning of discharge she was feeling well. She tolerated diet. Further history from her significant other at the bedside indicated that the patient had just had her late morning brunch about tea and toast. She then apparently took really hot shower, he commented that the bathroom was a very steamy. She then was per her words "rushing around" to get ready to go out shopping when she started to have the symptoms. Some of the symptoms may indicate some sort of vagal response of some chest discomfort or lightheadedness. This could be in response to her meal and then a hot shower. Instructed to avoid hot showers. Again as previously recommended small more frequent meals for hiatal hernia. No further need for hospitalization or evaluation. She be discharged home to follow-up with outpatient [facility]. Notes For Next Care Provider Encourage patient to keep appointment with outpatient surgeon to evaluate hiatal hernia intervention Medication Changes From Visit Carafate scheduled 2 times daily Admission HPI Per Admitting Provider Patient is 74-year-old female with PMH HTN, pulmonary hypertension, history PE, anticoagulated on warfarin, essential thrombocythemia, GERD, hiatal hernia, dementia, anxiety, depression presented to ER with c/o chest pain today. Per inpatient chart review Recent [facility] hospital admission 01/29-01/30/25 for abdominal pain, lower chest pain thought secondary to large hiatal hernia, hypertensive urgency treated with BID PPI and Carafate. Amlodipine was added to BP regimen Per chart review seen GI on 02/02/2025 with reported improvement of symptoms with lifestyle changes of discontinuing soda, eating small meals a day. Further history obtained from significant other. Limited history from patient secondary to cognitive status. Significant other reports patient has been complaining of less epigastric and chest discomfort. States has been using Caraf ate twice daily. Did Not have any Carafate today. States patient was in hot shower and when she came out she seemed flushed and c/o chest pain and SOB and asked to call 911. Significant other states the entire time patient was walking with her walker and did not appear to have visible SOB. Patient doesn't remember incident. She states currently feels "fine" does have epigastric and chest discomfort with palpation only. Denies N/V/D. Last BM yesterday. Denies urinary symptoms. Denies any known fever/chills. Today in ER troponin negative x 2. EKG without acute ST changes Previous GI workup: Colonoscopy: 01/19/2025--perianal and digital rectal exam normal. Multiple small and large mouth diverticula were found in the sigmoid colon and descending colon. 2 Sessile polyps were found in the transverse colon. Removed. Pathology: Fragments of tubular adenoma EGD: 01/19/2025-- Z-line 35 cm from incisors. GE flap valve classified as hill grade 4, no fold wide open lumen, hiatal hernia present. Normal stomach and duodenum. Pathology: No evidence of celiac disease. Mild chronic inactive gastritis. No intestinal metaplasia or dysplasia. CTAP: 01/29/2025 ([facility])-- large esophageal hiatal hernia. Liver, gallbladder, pancreas all unremarkable. Bowel unremarkable. Gastric emptying study:09/28/2024--normal solid gastric emptying study however testing limited as patient did not eat entire meal. Moderate-sized hiatal hernia Admission Exam Per Admitting Provider See H&P Discharge Exam Constitutional: Alert HEENT: Mucous membranes moist. Lungs: Clear to auscultation, decreased, no wheezes rales or rhonchi CV: S1-S2, regular Abdomen: Soft, nontender, nondistended Extremities: No significant edema Neuro: No focal deficits Psych: Cooperative, normal mood Updated Medication List Medication Instructions Recorded Confirmed Type cyanocobalamin (vitamin B-12) 1,000 mcg PO HS 08/08/18 02/10/25 History 1,000 mcg tablet (Vitamin B-12) nasal dilators (Breathe Right 08/08/18 01/29/25 History strips) nitroglycerin 0.4 mg sublingual 0.4 mg sublingual DIRECTED PRN 08/08/18 02/10/25 History tablet Chest Pain polyethylene glycol 3350 17 gram 17 g PO HS 08/08/18 02/10/25 History oral powder packet (Miralax) warfarin 5 mg tablet (Jantoven) 5 mg PO 2XWK 08/08/18 02/10/25 History acetaminophen 500 mg tablet 1,000 mg PO BID PRN PAIN/FEVER 01/25/21 02/10/25 History (Tylenol Extra Strength) hydroxyurea 500 mg capsule 500 mg PO DAILY 01/25/21 02/10/25 History ondansetron 4 mg disintegrating 4 mg PO Q6H PRN nausea and 01/25/21 02/10/25 Rx tablet vomiting #14 tabs aluminum-mag hydroxide-simethicone 15 ml PO Q6H PRN 04/26/22 02/10/25 History 200 mg-200 mg-20 mg/5 mL oral susp HEARTBURN/INDIGESTION aspirin 81 mg tablet,delayed 81 mg PO QAM 04/26/22 02/10/25 History release duloxetine 30 mg capsule,delayed 30 mg PO QAM 04/26/22 02/10/25 History release famotidine 20 mg tablet 40 mg PO HS HEARTBURN/INDIGESTION 04/26/22 02/10/25 History folic acid 800 mcg tablet 0.8 mg PO HS 04/26/22 02/10/25 History atorvastatin 80 mg tablet 80 mg PO QAM 01/29/25 02/10/25 History cholecalciferol (vitamin D3) 25 25 mcg PO HS 01/29/25 02/10/25 History mcg (1,000 unit) capsule (Vitamin D3) hydrocodone 5 mg-acetaminophen 325 1 tab PO Q8H PRN Pain 01/29/25 02/10/25 History mg tablet losartan 100 mg tablet 100 mg PO QAM 01/29/25 02/10/25 History sucralfate 1 gram tablet (Carafate) 1 g PO ACHS PRN abd pain 01/29/25 02/10/25 History warfarin 5 mg tablet 2.5 mg PO 5XWK 01/29/25 02/10/25 History amlodipine 5 mg tablet 5 mg PO QAM #30 tabs 01/30/25 02/10/25 Rx omeprazole 40 mg capsule,delayed 40 mg PO BID #60 caps 01/30/25 02/10/25 Rx release calcium carbonate 750 1 tab PO DIRECTED PRN 02/10/25 02/10/25 History mg-simethicone 80 mg chewable HEARTBURN/GAS DISCOMFORT tablet ([facility]ily-[place] Heartburn-Gas) mupirocin 2 % topical ointment 1 applic topical BID PRN SKIN 02/10/25 02/10/25 History IRRITATIONS triamcinolone acetonide 0.1 % 1 applic topical BID PRN SKIN 02/10/25 02/10/25 History topical cream IRRITATIONS Hospital Stay Data Diagnostic Imagining Performed 02/10/25 21:48 CT Abd and Pelvis [CT abd pelvis IV con only] Stat Reviewed imaging, laboratory and diagnostic studies. Pertinent findings as below. WBC 5.1 Hemoglobin 10.4 Platelets of 431 INR 2.1 Electrolytes stable Creatinine 0.81 Troponins negative times all sets Urinalysis negative for signs of infection. Pending Results Patient Have Any Pending Studies at Discharge: No Discharge Instructions Given to Patient (Per Discharging Provider) With your hiatal hernia it would be best to eat small frequent meals. Would avoid extremely hot showers Total Time Total Time Spent Total Time Spent (In Minutes): 32
[2025-02-11 10:35] VITALS: PULSE 69
[2025-02-11] MEDS ORDERED: FAMOTIDINE 40 MG TABLET PO SCH (21:00)
[2025-02-11] MEDS ORDERED: CHOLECALCIFEROL 25 MCG (1000 UNITS) TAB PO SCH (21:00)
[2025-02-11] MEDS ORDERED: POLYETHYLENE (MIRALAX) 17 GM PACK PO SCH (21:00)
== END 2025-02-11 12:07 | disposition home or self-care (01) ==
LOC: 2N 16:25 → ED 16:25 → 2N 22:38